=== PATIENT | male | born 1950 | race Caucasian/White ===

== ENCOUNTER 2019-04-01 14:04 | Emergency (ER) | payer OTHER ==
[~2019-04-01] VITALS: Ht 193 cm; Wt 90.7 kg
[~2019-04-01 14:04] MED LIST: Flomax0.4 MG PO; OLAN10 PO; PANT20 PO; PROAIR DIGIHAL90 MCG INH; SERT25 PO
== END 2019-04-01 15:24 | disposition left against medical advice (07) ==
LOC: ER 14:04
DX: L98.9 Disorder of the skin and subcutaneous tissue, unspecified (principal); I10 Essential (primary) hypertension; J44.9 Chronic obstructive pulmonary disease, unspecified; I48.91 Unspecified atrial fibrillation; F17.200 Nicotine dependence, unspecified, uncomplicated; Z88.8 Allergy status to other drugs, medicaments and biological substances; Z88.2 Allergy status to sulfonamides; Z88.1 Allergy status to other antibiotic agents; Z79.899 Other long term (current) drug therapy
CPT/HCPCS: 99283

== ENCOUNTER 2019-04-02 19:18 | Emergency (ER) | payer OTHER ==
[~2019-04-02] VITALS: Ht 193 cm; Wt 95.2 kg
[2019-04-02 20:08] LABS: BASOPHILS ABSOLUTE AUTO 0.06 K/mm3 (0.00-0.23); BASOPHILS PERCENT AUTO 1 % (0-2); EOSINOPHILS ABSOLUTE AUTO 0.19 K/mm3 (0.00-0.68); EOSINOPHILS PERCENT AUTO 3 % (0-6); IMMATURE GRAN ABSOLUTE AUTO 0.02 K/mm3 (0.00-0.10); IMMATURE GRAN PERCENT AUTO 0 % (0-1); LYMPHOCYTES ABSOLUTE AUTO 1.17 K/mm3 (0.84-5.20); LYMPHOCYTES PERCENT AUTO 20 % (21-46); MONOCYTES ABSOLUTE AUTO 0.61 K/mm3 (0.16-1.47); MONOCYTES PERCENT AUTO 10 % (4-13); Mean Corpuscular HGB 27.9 pg (26.0-34.0); Mean Corpuscular HGB Conc 31.3 g/dL (31.5-36.5); Mean Corpuscular Volume 89 fL (80-100); Mean Platelet Volume 9.4 fL (9.1-12.4); NEUTROPHILS ABSOLUTE AUTO 3.96 K/mm3 (1.96-9.15); NEUTROPHILS PERCENT AUTO 66 % (41-73); Platelet Count 233 K/mm3 (150-400); RDW Coefficient Variation 14.8 % (11.7-14.2); RDW Standard Deviation 49.1 fL (35.1-46.3); Red Blood Cell Count 3.58 M/mm3 (4.30-5.90); White Blood Cell Count 6.01 K/mm3 (4.00-11.30)
[2019-04-02 20:22] LABS: Alanine Aminotransfer (ALT/SGP 15 U/L (12-78); Albumin, Blood 3.3 g/dL (3.4-5.0); Alk Phos 101 U/L (50-136); Anion Gap 6 mmol/L (6-16); Aspartate Aminotrans (AST/SGOT 24 U/L (12-37); Bilirubin, Total 0.3 mg/dL (0.1-1.0); Blood Urea Nitrogen 15 mg/dL (8-24); Bun/Creatinine Ratio 14.7 (12.0-20.0); CO2, Blood 26 mmol/L (21-32); Calcium, Blood 7.9 mg/dL (8.5-10.1); Chloride, Blood 101 mmol/L (98-108); Creatinine, Blood 1.02 mg/dL (0.60-1.20); Globulin, Blood 3.2 g/dL (2.2-4.0); Glomerular Filtration Rate >60 (60-); Glucose, Blood 82 mg/dL (70-99); Potassium, Blood 3.4 mmol/L (3.5-5.5); Sodium, Blood 133 mmol/L (136-145); Total Protein, Blood 6.5 g/dL (6.4-8.2); Troponin I 0.015 ng/mL (0.000-0.040)
== END 2019-04-02 21:41 | disposition home or self-care (01) ==
LOC: ER 19:18
PROVIDERS: Emergency Medicine
DX: S20.319A Abrasion of unspecified front wall of thorax, initial encounter (principal); S40.211A Abrasion of right shoulder, initial encounter; L28.0 Lichen simplex chronicus; X58.XXXA Exposure to other specified factors, initial encounter; Z88.8 Allergy status to other drugs, medicaments and biological substances; Z88.2 Allergy status to sulfonamides; Z88.1 Allergy status to other antibiotic agents; Z79.899 Other long term (current) drug therapy; I10 Essential (primary) hypertension; J44.9 Chronic obstructive pulmonary disease, unspecified; I48.91 Unspecified atrial fibrillation; F17.200 Nicotine dependence, unspecified, uncomplicated
CPT/HCPCS: 36415; 80053; 84484; 85025; 93005; 93010; 99284-25

== ENCOUNTER 2019-04-05 17:17 | Emergency (ER) | payer OTHER ==
[~2019-04-05] VITALS: Ht 193 cm; Wt 105.7 kg
[2019-04-05] MEDS ORDERED: Monodox100 MG PO (19:07)
== END 2019-04-05 19:19 | disposition home or self-care (01) ==
LOC: ER 17:17
DX: L02.512 Cutaneous abscess of left hand (principal); L02.511 Cutaneous abscess of right hand; L03.114 Cellulitis of left upper limb; L03.113 Cellulitis of right upper limb; I10 Essential (primary) hypertension; I48.91 Unspecified atrial fibrillation; J44.9 Chronic obstructive pulmonary disease, unspecified; Z87.01 Personal history of pneumonia (recurrent); Z88.2 Allergy status to sulfonamides; Z88.8 Allergy status to other drugs, medicaments and biological substances; F17.200 Nicotine dependence, unspecified, uncomplicated
CPT/HCPCS: 99283

== ENCOUNTER 2019-04-06 18:15 | Emergency (ER) | payer OTHER ==
[~2019-04-06] VITALS: Ht 182.9 cm; Wt 90.7 kg
[~2019-04-06 18:15] MED LIST changes: +Monodox100 MG PO
[2019-04-06 20:11] LABS: BASOPHILS ABSOLUTE AUTO 0.09 K/mm3 (0.00-0.23); BASOPHILS PERCENT AUTO 1 % (0-2); EOSINOPHILS ABSOLUTE AUTO 0.42 K/mm3 (0.00-0.68); EOSINOPHILS PERCENT AUTO 6 % (0-6); Hematocrit 29.1 % (37.0-53.0); Hemoglobin 9.2 g/dL (13.5-17.5); IMMATURE GRAN ABSOLUTE AUTO 0.02 K/mm3 (0.00-0.10); IMMATURE GRAN PERCENT AUTO 0 % (0-1); LYMPHOCYTES ABSOLUTE AUTO 1.53 K/mm3 (0.84-5.20); LYMPHOCYTES PERCENT AUTO 22 % (21-46); MONOCYTES ABSOLUTE AUTO 0.77 K/mm3 (0.16-1.47); MONOCYTES PERCENT AUTO 11 % (4-13); Mean Corpuscular HGB 28.2 pg (26.0-34.0); Mean Corpuscular HGB Conc 31.6 g/dL (31.5-36.5); Mean Corpuscular Volume 89 fL (80-100); Mean Platelet Volume 9.4 fL (9.1-12.4); NEUTROPHILS ABSOLUTE AUTO 4.23 K/mm3 (1.96-9.15); NEUTROPHILS PERCENT AUTO 60 % (41-73); Platelet Count 228 K/mm3 (150-400); RDW Coefficient Variation 15.4 % (11.7-14.2); RDW Standard Deviation 50.4 fL (35.1-46.3); Red Blood Cell Count 3.26 M/mm3 (4.30-5.90); White Blood Cell Count 7.06 K/mm3 (4.00-11.30)
[2019-04-06 20:30] LABS: Alanine Aminotransfer (ALT/SGP 29 U/L (12-78); Albumin, Blood 2.9 g/dL (3.4-5.0); Alk Phos 88 U/L (50-136); Anion Gap 3 mmol/L (6-16); Aspartate Aminotrans (AST/SGOT 29 U/L (12-37); Bilirubin, Total 0.2 mg/dL (0.1-1.0); Blood Urea Nitrogen 22 mg/dL (8-24); CO2, Blood 28 mmol/L (21-32); Calcium, Blood 7.9 mg/dL (8.5-10.1); Chloride, Blood 111 mmol/L (98-108); Creatinine, Blood 1.05 mg/dL (0.60-1.20); Ethanol (Alcohol), Blood, Med <3 mg/dL; Globulin, Blood 2.9 g/dL (2.2-4.0); Glomerular Filtration Rate >60 (60-); Glucose, Blood 92 mg/dL (70-99); Potassium, Blood 4.2 mmol/L (3.5-5.5); Sodium, Blood 142 mmol/L (136-145); Total Protein, Blood 5.8 g/dL (6.4-8.2)
== END 2019-04-06 22:33 | disposition home or self-care (01) ==
LOC: ER 18:15
PROVIDERS: Emergency Medicine
DX: L80 Vitiligo (principal); F17.210 Nicotine dependence, cigarettes, uncomplicated
CPT/HCPCS: 36415; 71046; 80053; 83605; 83690; 83735; 85025; 93005; 93010; 94640; 99284-25; G0480; J7120

== ENCOUNTER 2019-05-24 15:07 | Emergency (ER) | payer OTHER, MEDICARE ==
[~2019-05-24] VITALS: Ht 193 cm; Wt 99.8 kg
[2019-05-24] MEDS ORDERED: VENL25 PO (15:29)
[2019-05-24] MEDS ORDERED: OLAN10 PO (15:30)
[2019-05-24] MEDS ORDERED: THERA-D2000 UNIT PO (15:31)
[2019-05-24] MEDS ORDERED: GABA300 PO (15:31)
[2019-05-24 15:32] LABS: BASOPHILS ABSOLUTE AUTO 0.07 K/mm3 (0.00-0.23); BASOPHILS PERCENT AUTO 1 % (0-2); EOSINOPHILS ABSOLUTE AUTO 0.13 K/mm3 (0.00-0.68); EOSINOPHILS PERCENT AUTO 2 % (0-6); Hematocrit 38.5 % (37.0-53.0); IMMATURE GRAN ABSOLUTE AUTO 0.02 K/mm3 (0.00-0.10); IMMATURE GRAN PERCENT AUTO 0 % (0-1); LYMPHOCYTES ABSOLUTE AUTO 1.24 K/mm3 (0.84-5.20); LYMPHOCYTES PERCENT AUTO 15 % (21-46); MONOCYTES PERCENT AUTO 9 % (4-13); Mean Corpuscular HGB 26.4 pg (26.0-34.0); Mean Corpuscular HGB Conc 31.2 g/dL (31.5-36.5); Mean Corpuscular Volume 85 fL (80-100); Mean Platelet Volume 9.5 fL (9.1-12.4); NEUTROPHILS PERCENT AUTO 74 % (41-73); Platelet Count 246 K/mm3 (150-400); RDW Coefficient Variation 15.1 % (11.7-14.2); RDW Standard Deviation 46.4 fL (35.1-46.3); Red Blood Cell Count 4.54 M/mm3 (4.30-5.90); White Blood Cell Count 8.16 K/mm3 (4.00-11.30)
[2019-05-24 15:55] LABS: Alanine Aminotransfer (ALT/SGP 17 U/L (12-78); Albumin, Blood 3.9 g/dL (3.4-5.0); Albumin/Globulin Ratio 1.1 (0.8-1.8); Alk Phos 115 U/L (50-136); Anion Gap 6 mmol/L (6-16); Aspartate Aminotrans (AST/SGOT 19 U/L (12-37); Bilirubin, Total 0.3 mg/dL (0.1-1.0); Blood Urea Nitrogen 21 mg/dL (8-24); Bun/Creatinine Ratio 22.4 (12.0-20.0); CO2, Blood 26 mmol/L (21-32); Calcium, Blood 8.7 mg/dL (8.5-10.1); Chloride, Blood 108 mmol/L (98-108); Creatinine, Blood 0.94 mg/dL (0.60-1.20); Globulin, Blood 3.6 g/dL (2.2-4.0); Glomerular Filtration Rate >60 (60-); Glucose, Blood 118 mg/dL (70-99); Potassium, Blood 3.6 mmol/L (3.5-5.5); Sodium, Blood 140 mmol/L (136-145); Total Protein, Blood 7.5 g/dL (6.4-8.2); Troponin I <0.015 ng/mL (0.000-0.040)
[2019-05-24 17:19] LABS: International Normalized Ratio 1.01; Prothrombin Time Results 10.8 Sec (9.7-11.5)
== END 2019-05-24 19:11 | disposition home or self-care (01) ==
LOC: ER 15:07
PROVIDERS: Emergency Medicine
DX: R07.9 Chest pain, unspecified (principal); R00.2 Palpitations; I10 Essential (primary) hypertension; I48.91 Unspecified atrial fibrillation; Z79.899 Other long term (current) drug therapy
CPT/HCPCS: 71046; 80053; 84484; 85025; 85610; 93005; 93010; 99285-25

== ENCOUNTER 2019-05-30 09:11 | Emergency (ER) | payer OTHER, MEDICARE ==
[~2019-05-30] VITALS: Ht 193 cm; Wt 98.9 kg
[~2019-05-30 09:11] MED LIST changes: +GABA300 PO; +THERA-D2000 UNIT PO; +VENL25 PO
== END 2019-05-30 09:54 | disposition home or self-care (01) ==
LOC: ER 09:11
DX: Z04.3 Encounter for examination and observation following other accident (principal); J44.9 Chronic obstructive pulmonary disease, unspecified; F43.10 Post-traumatic stress disorder, unspecified; F31.9 Bipolar disorder, unspecified; K21.9 Gastro-esophageal reflux disease without esophagitis; I48.91 Unspecified atrial fibrillation; F17.210 Nicotine dependence, cigarettes, uncomplicated; Z88.8 Allergy status to other drugs, medicaments and biological substances; Z88.2 Allergy status to sulfonamides; Z88.1 Allergy status to other antibiotic agents; Z79.899 Other long term (current) drug therapy; W19.XXXA Unspecified fall, initial encounter
CPT/HCPCS: 99283

== ENCOUNTER 2019-05-31 02:04 | Emergency (ER) | payer OTHER, MEDICARE ==
[~2019-05-31] VITALS: Ht 193 cm; Wt 103.0 kg
[2019-05-31 02:36] LABS: BASOPHILS ABSOLUTE AUTO 0.05 K/mm3 (0.00-0.23); BASOPHILS PERCENT AUTO 1 % (0-2); EOSINOPHILS ABSOLUTE AUTO 0.01 K/mm3 (0.00-0.68); EOSINOPHILS PERCENT AUTO 0 % (0-6); Hematocrit 31.9 % (37.0-53.0); IMMATURE GRAN ABSOLUTE AUTO 0.02 K/mm3 (0.00-0.10); IMMATURE GRAN PERCENT AUTO 0 % (0-1); LYMPHOCYTES ABSOLUTE AUTO 0.63 K/mm3 (0.84-5.20); LYMPHOCYTES PERCENT AUTO 7 % (21-46); MONOCYTES ABSOLUTE AUTO 0.76 K/mm3 (0.16-1.47); MONOCYTES PERCENT AUTO 9 % (4-13); Mean Corpuscular HGB 26.9 pg (26.0-34.0); Mean Corpuscular HGB Conc 31.3 g/dL (31.5-36.5); Mean Corpuscular Volume 86 fL (80-100); Mean Platelet Volume 9.6 fL (9.1-12.4); NEUTROPHILS ABSOLUTE AUTO 7.28 K/mm3 (1.96-9.15); NEUTROPHILS PERCENT AUTO 83 % (41-73); Platelet Count 331 K/mm3 (150-400); RDW Coefficient Variation 16.5 % (11.7-14.2); RDW Standard Deviation 51.1 fL (35.1-46.3); Red Blood Cell Count 3.72 M/mm3 (4.30-5.90); White Blood Cell Count 8.75 K/mm3 (4.00-11.30)
[2019-05-31 02:55] LABS: Alanine Aminotransfer (ALT/SGP 45 U/L (12-78); Albumin, Blood 3.7 g/dL (3.4-5.0); Alk Phos 111 U/L (50-136); Anion Gap 16 mmol/L (6-16); Aspartate Aminotrans (AST/SGOT 135 U/L (12-37); Bilirubin, Total 0.8 mg/dL (0.1-1.0); Blood Urea Nitrogen 29 mg/dL (8-24); Bun/Creatinine Ratio 29.4 (12.0-20.0); CO2, Blood 20 mmol/L (21-32); Calcium, Blood 8.8 mg/dL (8.5-10.1); Chloride, Blood 103 mmol/L (98-108); Creatinine, Blood 0.99 mg/dL (0.60-1.20); Globulin, Blood 3.6 g/dL (2.2-4.0); Glomerular Filtration Rate >60 (60-); Glucose, Blood 69 mg/dL (70-99); Potassium, Blood 4.5 mmol/L (3.5-5.5); Sodium, Blood 139 mmol/L (136-145); Total Protein, Blood 7.3 g/dL (6.4-8.2)
[2019-05-31 05:02] LABS: Source, Urine Voided
[2019-05-31 05:07] LABS: Bilirubin, Urine Neg (Neg); Blood, Urine 1+ (Neg); Glucose Qualitative, Urine Neg (Neg); Ketones, Urine 4+ (Neg); Leukocyte Esterase, Urine Neg (Neg); Nitrite, Urine Neg (Neg); Protein, Urine Neg (Neg); Specific Gravity, Urine 1.025 (1.003-1.022); Urobilinogen, Urine NORM (Normal)
[2019-05-31 05:13] LABS: Appearance, Urine Clear (Clear); Color, Urine Yellow (P-Yellow)
[2019-05-31 05:15] LABS: Bacteria Rare /hpf; Red Blood Cells, Urine Not Seen /hpf (0-2); Squamous Epithelial Cells Rare /hpf (Few); White Blood Cells, Urine Not Seen /hpf (0-5)
== END 2019-05-31 06:21 | disposition home or self-care (01) ==
LOC: ER 02:04
PROVIDERS: Emergency Medicine
DX: J44.9 Chronic obstructive pulmonary disease, unspecified (principal); I48.91 Unspecified atrial fibrillation; I10 Essential (primary) hypertension; K21.9 Gastro-esophageal reflux disease without esophagitis; F31.9 Bipolar disorder, unspecified; F17.210 Nicotine dependence, cigarettes, uncomplicated; Z88.8 Allergy status to other drugs, medicaments and biological substances; Z88.2 Allergy status to sulfonamides; Z88.1 Allergy status to other antibiotic agents; Z79.899 Other long term (current) drug therapy
CPT/HCPCS: 71045; 80053; 81001; 83690; 85025; 93005; 93010; 96374; 96375; 99284-25

== ENCOUNTER 2019-05-31 16:07 | Emergency (ER) | payer OTHER, MEDICARE ==
[~2019-05-31] VITALS: Ht 193 cm; Wt 104.3 kg
== END 2019-05-31 16:38 | disposition home or self-care (01) ==
LOC: ER 16:07
DX: F31.9 Bipolar disorder, unspecified (principal); F41.9 Anxiety disorder, unspecified; F60.3 Borderline personality disorder; Z76.5 Malingerer [conscious simulation]; I10 Essential (primary) hypertension; J44.9 Chronic obstructive pulmonary disease, unspecified; I48.91 Unspecified atrial fibrillation; F43.10 Post-traumatic stress disorder, unspecified; K21.9 Gastro-esophageal reflux disease without esophagitis; Z88.2 Allergy status to sulfonamides; F17.210 Nicotine dependence, cigarettes, uncomplicated; Z88.8 Allergy status to other drugs, medicaments and biological substances; Z79.899 Other long term (current) drug therapy
CPT/HCPCS: 99283

== ENCOUNTER 2019-06-04 19:19 | Emergency (ER) | payer OTHER, MEDICARE ==
[~2019-06-04] VITALS: Ht 193 cm; Wt 99.8 kg
[2019-06-04 20:24] LABS: BASOPHILS ABSOLUTE AUTO 0.04 K/mm3 (0.00-0.23); BASOPHILS PERCENT AUTO 1 % (0-2); EOSINOPHILS ABSOLUTE AUTO 0.13 K/mm3 (0.00-0.68); EOSINOPHILS PERCENT AUTO 2 % (0-6); Hematocrit 31.4 % (37.0-53.0); Hemoglobin 9.8 g/dL (13.5-17.5); IMMATURE GRAN ABSOLUTE AUTO 0.01 K/mm3 (0.00-0.10); IMMATURE GRAN PERCENT AUTO 0 % (0-1); LYMPHOCYTES ABSOLUTE AUTO 0.86 K/mm3 (0.84-5.20); LYMPHOCYTES PERCENT AUTO 12 % (21-46); MONOCYTES ABSOLUTE AUTO 0.73 K/mm3 (0.16-1.47); MONOCYTES PERCENT AUTO 10 % (4-13); Mean Corpuscular HGB Conc 31.2 g/dL (31.5-36.5); Mean Corpuscular Volume 87 fL (80-100); Mean Platelet Volume 9.1 fL (9.1-12.4); NEUTROPHILS ABSOLUTE AUTO 5.65 K/mm3 (1.96-9.15); NEUTROPHILS PERCENT AUTO 76 % (41-73); Platelet Count 262 K/mm3 (150-400); RDW Coefficient Variation 16.5 % (11.7-14.2); RDW Standard Deviation 52.6 fL (35.1-46.3); Red Blood Cell Count 3.63 M/mm3 (4.30-5.90); White Blood Cell Count 7.42 K/mm3 (4.00-11.30)
[2019-06-04 20:43] LABS: Alanine Aminotransfer (ALT/SGP 25 U/L (12-78); Albumin, Blood 3.1 g/dL (3.4-5.0); Alk Phos 79 U/L (50-136); Anion Gap 4 mmol/L (6-16); Aspartate Aminotrans (AST/SGOT 21 U/L (12-37); Bilirubin, Total 0.3 mg/dL (0.1-1.0); Blood Urea Nitrogen 17 mg/dL (8-24); Bun/Creatinine Ratio 22.8 (12.0-20.0); CO2, Blood 28 mmol/L (21-32); Calcium, Blood 8.5 mg/dL (8.5-10.1); Chloride, Blood 105 mmol/L (98-108); Creatinine, Blood 0.75 mg/dL (0.60-1.20); Globulin, Blood 3.2 g/dL (2.2-4.0); Glomerular Filtration Rate >60 (60-); Glucose, Blood 114 mg/dL (70-99); Potassium, Blood 4.1 mmol/L (3.5-5.5); Sodium, Blood 137 mmol/L (136-145); Total Protein, Blood 6.3 g/dL (6.4-8.2)
[2019-06-04] MEDS ORDERED: Lasix20 MG PO ×2 (21:02→22:00)
[2019-06-06] MEDS ORDERED: Lasix20 MG PO (23:01)
== END 2019-06-04 21:55 | disposition home or self-care (01) ==
LOC: ER 19:19
PROVIDERS: Emergency Medicine
DX: R60.0 Localized edema (principal); J44.9 Chronic obstructive pulmonary disease, unspecified; F31.9 Bipolar disorder, unspecified; K21.9 Gastro-esophageal reflux disease without esophagitis; F43.10 Post-traumatic stress disorder, unspecified; F17.200 Nicotine dependence, unspecified, uncomplicated; Z88.2 Allergy status to sulfonamides; Z88.8 Allergy status to other drugs, medicaments and biological substances; Z79.899 Other long term (current) drug therapy
CPT/HCPCS: 36415; 73590; 80053; 85025; 93970; 99284-25

== ENCOUNTER 2019-06-08 19:14 | Emergency (ER) | payer OTHER, MEDICARE ==
[~2019-06-08] VITALS: Ht 193 cm; Wt 99.8 kg
[~2019-06-08 19:14] MED LIST changes: +Lasix20 MG PO
== END 2019-06-08 20:41 | disposition home or self-care (01) ==
LOC: ER 19:14
DX: R60.0 Localized edema (principal); J44.9 Chronic obstructive pulmonary disease, unspecified; F31.9 Bipolar disorder, unspecified; K21.9 Gastro-esophageal reflux disease without esophagitis; F43.10 Post-traumatic stress disorder, unspecified; Z88.2 Allergy status to sulfonamides; Z88.8 Allergy status to other drugs, medicaments and biological substances; Z79.899 Other long term (current) drug therapy; Z86.14 Personal history of Methicillin resistant Staphylococcus aureus infection; F17.210 Nicotine dependence, cigarettes, uncomplicated
CPT/HCPCS: 96374; 99283-25; J1940

== ENCOUNTER 2019-06-09 04:43 | Emergency (ER) | payer OTHER, MEDICARE ==
[~2019-06-09] VITALS: Ht 193 cm; Wt 99.8 kg
== END 2019-06-09 05:37 | disposition home or self-care (01) ==
LOC: ER 04:43
DX: Z00.00 Encounter for general adult medical examination without abnormal findings (principal); F43.10 Post-traumatic stress disorder, unspecified; J44.9 Chronic obstructive pulmonary disease, unspecified; F31.9 Bipolar disorder, unspecified; K21.9 Gastro-esophageal reflux disease without esophagitis; F17.210 Nicotine dependence, cigarettes, uncomplicated; Z88.8 Allergy status to other drugs, medicaments and biological substances; Z88.2 Allergy status to sulfonamides; Z88.1 Allergy status to other antibiotic agents; Z79.899 Other long term (current) drug therapy
CPT/HCPCS: 99282

== ENCOUNTER 2019-06-15 19:35 | Emergency (ER) | payer OTHER, MEDICARE ==
[~2019-06-15] VITALS: Ht 193 cm; Wt 108.9 kg
== END 2019-06-15 21:27 | disposition home or self-care (01) ==
LOC: ER 19:35
DX: M71.21 Synovial cyst of popliteal space [Baker], right knee (principal); J44.9 Chronic obstructive pulmonary disease, unspecified; F31.9 Bipolar disorder, unspecified; K21.9 Gastro-esophageal reflux disease without esophagitis; F17.210 Nicotine dependence, cigarettes, uncomplicated; Z88.8 Allergy status to other drugs, medicaments and biological substances; Z88.2 Allergy status to sulfonamides; Z88.1 Allergy status to other antibiotic agents; Z79.899 Other long term (current) drug therapy
CPT/HCPCS: 93970; 99284-25

== ENCOUNTER 2019-07-04 16:28 | Emergency (ER) | payer OTHER, MEDICARE ==
[~2019-07-04] VITALS: Ht 193 cm; Wt 99.8 kg
[2019-07-04 17:05] LABS: BASOPHILS ABSOLUTE AUTO 0.07 K/mm3 (0.00-0.23); BASOPHILS PERCENT AUTO 1 % (0-2); EOSINOPHILS ABSOLUTE AUTO 0.14 K/mm3 (0.00-0.68); EOSINOPHILS PERCENT AUTO 2 % (0-6); Hematocrit 36.2 % (37.0-53.0); Hemoglobin 11.3 g/dL (13.5-17.5); IMMATURE GRAN ABSOLUTE AUTO 0.02 K/mm3 (0.00-0.10); IMMATURE GRAN PERCENT AUTO 0 % (0-1); LYMPHOCYTES ABSOLUTE AUTO 1.05 K/mm3 (0.84-5.20); LYMPHOCYTES PERCENT AUTO 16 % (21-46); MONOCYTES ABSOLUTE AUTO 0.61 K/mm3 (0.16-1.47); MONOCYTES PERCENT AUTO 10 % (4-13); Mean Corpuscular HGB 25.5 pg (26.0-34.0); Mean Corpuscular HGB Conc 31.2 g/dL (31.5-36.5); Mean Corpuscular Volume 82 fL (80-100); Mean Platelet Volume 9.1 fL (9.1-12.4); NEUTROPHILS ABSOLUTE AUTO 4.53 K/mm3 (1.96-9.15); NEUTROPHILS PERCENT AUTO 71 % (41-73); Platelet Count 331 K/mm3 (150-400); RDW Coefficient Variation 15.9 % (11.7-14.2); RDW Standard Deviation 47.8 fL (35.1-46.3); Red Blood Cell Count 4.44 M/mm3 (4.30-5.90); White Blood Cell Count 6.42 K/mm3 (4.00-11.30)
[2019-07-04 17:23] LABS: Anion Gap 6 mmol/L (6-16); Blood Urea Nitrogen 13 mg/dL (8-24); Bun/Creatinine Ratio 15.1 (12.0-20.0); CO2, Blood 27 mmol/L (21-32); Chloride, Blood 102 mmol/L (98-108); Creatinine, Blood 0.86 mg/dL (0.60-1.20); Ethanol (Alcohol), Blood, Med 14 mg/dL; Glomerular Filtration Rate >60 (60-); Glucose, Blood 81 mg/dL (70-99); Potassium, Blood 3.7 mmol/L (3.5-5.5); Sodium, Blood 135 mmol/L (136-145)
== END 2019-07-04 17:41 | disposition home or self-care (01) ==
LOC: ER 16:28
PROVIDERS: Emergency Medicine
DX: R60.0 Localized edema (principal); J44.9 Chronic obstructive pulmonary disease, unspecified; F17.200 Nicotine dependence, unspecified, uncomplicated; Z91.14 Patient's other noncompliance with medication regimen
CPT/HCPCS: 80048; 85025; 99283; G0480

== ENCOUNTER 2019-07-05 09:52 | Emergency (ER) | payer OTHER, MEDICARE ==
[~2019-07-05] VITALS: Ht 193 cm; Wt 104.3 kg
== END 2019-07-05 11:49 | disposition home or self-care (01) ==
LOC: ER 09:52
DX: R52 Pain, unspecified (principal); Z76.0 Encounter for issue of repeat prescription; I10 Essential (primary) hypertension; J44.9 Chronic obstructive pulmonary disease, unspecified; F31.9 Bipolar disorder, unspecified; K21.9 Gastro-esophageal reflux disease without esophagitis; F17.210 Nicotine dependence, cigarettes, uncomplicated; Z59.0 Homelessness; Z88.8 Allergy status to other drugs, medicaments and biological substances; Z88.2 Allergy status to sulfonamides; Z88.1 Allergy status to other antibiotic agents
CPT/HCPCS: 99283

== ENCOUNTER 2019-07-11 01:26 | Emergency (ER) | payer OTHER, MEDICARE ==
[~2019-07-11] VITALS: Ht 193 cm; Wt 95.2 kg
== END 2019-07-11 01:46 | disposition home or self-care (01) ==
LOC: ER 01:26
DX: F32.9 Major depressive disorder, single episode, unspecified (principal); J44.9 Chronic obstructive pulmonary disease, unspecified; K21.9 Gastro-esophageal reflux disease without esophagitis; F17.210 Nicotine dependence, cigarettes, uncomplicated; Z88.8 Allergy status to other drugs, medicaments and biological substances; Z88.2 Allergy status to sulfonamides; Z88.1 Allergy status to other antibiotic agents; Z79.899 Other long term (current) drug therapy
CPT/HCPCS: 99284

== ENCOUNTER 2019-07-27 16:12 | Emergency (ER) | payer OTHER, MEDICARE ==
[~2019-07-27] VITALS: Ht 193 cm; Wt 99.8 kg
== END 2019-07-27 17:20 | disposition home or self-care (01) ==
LOC: ER 16:12
DX: Z59.0 Homelessness (principal); F17.210 Nicotine dependence, cigarettes, uncomplicated; Z88.2 Allergy status to sulfonamides; Z88.8 Allergy status to other drugs, medicaments and biological substances
CPT/HCPCS: 99283

== ENCOUNTER 2019-07-27 17:40 | Observation (INO) | payer OTHER, MEDICARE ==
[~2019-07-27] VITALS: Ht 182.9 cm; Wt 87.1 kg
[2019-07-27 18:16] LABS: BASOPHILS ABSOLUTE AUTO 0.07 K/mm3 (0.00-0.23); BASOPHILS PERCENT AUTO 1 % (0-2); EOSINOPHILS ABSOLUTE AUTO 0.09 K/mm3 (0.00-0.68); EOSINOPHILS PERCENT AUTO 1 % (0-6); Hematocrit 35.5 % (37.0-53.0); Hemoglobin 11.3 g/dL (13.5-17.5); IMMATURE GRAN ABSOLUTE AUTO 0.02 K/mm3 (0.00-0.10); IMMATURE GRAN PERCENT AUTO 0 % (0-1); LYMPHOCYTES PERCENT AUTO 11 % (21-46); MONOCYTES ABSOLUTE AUTO 0.63 K/mm3 (0.16-1.47); MONOCYTES PERCENT AUTO 7 % (4-13); Mean Corpuscular HGB 25.4 pg (26.0-34.0); Mean Corpuscular HGB Conc 31.8 g/dL (31.5-36.5); Mean Corpuscular Volume 80 fL (80-100); Mean Platelet Volume 9.5 fL (9.1-12.4); NEUTROPHILS ABSOLUTE AUTO 6.76 K/mm3 (1.96-9.15); NEUTROPHILS PERCENT AUTO 80 % (41-73); Platelet Count 331 K/mm3 (150-400); RDW Coefficient Variation 17.2 % (11.7-14.2); RDW Standard Deviation 49.8 fL (35.1-46.3); Red Blood Cell Count 4.45 M/mm3 (4.30-5.90); White Blood Cell Count 8.47 K/mm3 (4.00-11.30)
[2019-07-27 18:36] LABS: Alanine Aminotransfer (ALT/SGP 25 U/L (12-78); Albumin, Blood 3.7 g/dL (3.4-5.0); Alk Phos 91 U/L (50-136); Anion Gap 11 mmol/L (6-16); Aspartate Aminotrans (AST/SGOT 50 U/L (12-37); Bilirubin, Total 0.5 mg/dL (0.1-1.0); Blood Urea Nitrogen 17 mg/dL (8-24); Bun/Creatinine Ratio 17.9 (12.0-20.0); CO2, Blood 23 mmol/L (21-32); Calcium, Blood 9.1 mg/dL (8.5-10.1); Chloride, Blood 107 mmol/L (98-108); Creatinine, Blood 0.95 mg/dL (0.60-1.20); Ethanol (Alcohol), Blood, Med 5 mg/dL; Globulin, Blood 3.6 g/dL (2.2-4.0); Glomerular Filtration Rate >60 (60-); Glucose, Blood 102 mg/dL (70-99); Potassium, Blood 3.3 mmol/L (3.5-5.5); Prolactin 21.9 ng/mL (2.5-17.4); Sodium, Blood 141 mmol/L (136-145); Total Protein, Blood 7.3 g/dL (6.4-8.2)
[2019-07-28 04:40] LABS: Anion Gap 8 mmol/L (6-16); Blood Urea Nitrogen 16 mg/dL (8-24); Bun/Creatinine Ratio 20.8 (12.0-20.0); CO2, Blood 24 mmol/L (21-32); Calcium, Blood 8.1 mg/dL (8.5-10.1); Chloride, Blood 109 mmol/L (98-108); Creatinine, Blood 0.77 mg/dL (0.60-1.20); Glomerular Filtration Rate >60 (60-); Glucose, Blood 85 mg/dL (70-99); Magnesium, Blood 2.5 mg/dL (1.6-2.4); Potassium, Blood 3.6 mmol/L (3.5-5.5); Sodium, Blood 141 mmol/L (136-145)
--- NOTE | 2019-07-28 07:35 | NUR ---
REC'D REPORT FROM ELLA VIERA AND AM NOW ASSUMING CARE OF THIS PT.
--- NOTE | 2019-07-28 07:39 | NUR ---
ADMIT NOTE/SHIFT SUMMARY PATIENT ADMITED THE BEGINNING OF THE SHIFT AND WAS VERY DROWSY UPON ADMIT. PATIENT WOULD AWAKEN TO VERBAL STIMULI AND WOULD SHAKE HEAD YES/NO BUT WOULD THEN QUICKLY FALL BACK ASLEEP. PATIENT APPEARED TO SLEEP WELL THROUGHOUT MOST OF THE NIGHT. AT APPOX 0400 PATIENT STARTED WAKING UP MORE AND TALKING AND INTERACTING WITH STAFF. PATIENT HAS APPEARED TO BE AWAKE FOR THE LAST 30-45 MINUTES THIS MORNING. VITAL SIGNS CHARTED. CIWA'S CHARTED. REPORT GIVEN TO ONCOMING RN.
--- NOTE | 2019-07-28 11:40 | NUR ---
DR VILLARREAL IN TO ASSESS PT. SEE NEW ORDERS. PENDING MRI OF LT SHOULDER R/T ACUTE PAIN FROM FALL.
--- NOTE | 2019-07-28 12:00 | NUR ---
MRI SCREENING FORM FILLED OUT WITH PT AND FAXED TO RADIOLOGY.
--- NOTE | 2019-07-28 14:10 | NUR ---
PT RETURNED FROM MRI. PT TREATED WITH TORADOL FOR PAIN. PO POTASSIUM FOR BORDERLINE LOW POTASSIUM, AND ZYPREXA PER ORDERS ONCE HE RETURNED TO RM. PT DECLINED WANTING TO TAKE ZOLOFT. DISCUSSED BLOOD AND RELEASE OF INFORMATION PAPERWORK WITH PT AND OBTAINED SIGNATURE.
--- NOTE | 2019-07-28 17:30 | NUR ---
PT UPDATE: UPON THIS RN ENTERING ROOM. PT FOUND SLEEPING BUT AWOKE EASILY TO VERBALL STIMULI. DENIES ANY PAIN IN RT SHOULDER AFTER REC'ING TORADOL IVP.
--- NOTE | 2019-07-28 17:44 | NUR ---
SHIFT SUMMARY: PT IS SLIGHTLY DROWSY AFTER IV ATIVAN BUT AWAKENS EASILY. PT C/O OF CONSTANT, THROBBING SHOULDER PAIN T/O SHIFT, HOWEVER, REPORTS HE IS PAIN FREE AFTER ONE DOSE OF TORADOL. PT HAS 3 MORE SCHEDULED DOSES. PT REMAINS ALERT AND ORIENTED TO SELF/PLACE/TIME/FOLLOWS DIRECTION. AT TIMES PT IS IMPULSIVE BUT REDIRECTABLE. PT ABLE TO AMBULATE TO RESTROOM WITH SLIGHTLY UNSTEADY GAIT WITH 1 PERSON ASSIST. PT REFUSED TO USE HIS OWN FWW WHEN UP. MRI DONE OF THE RT SHOULDER R/T PAIN FROM RECENT FALL. LUNGS ARE CLEAR, BUT DIMINISHED IN THE BILATERAL BASES. SP02 >90% ON RA T/O SHIFT. HR IRREGULAR, ATRIAL FIB-LOW 100'S WITH REST, BUT WILL INCREASE TO 130-150'S W/EXERTION. IV IS PATENT, SL'D AT THIS TIME. ABD SOFT/NON-TENDER WITH ACTIVE BT'S X4 QAUDS. PT HAS HAD A GOOD APPETITE, AND OFTEN ASKS FOR SNACKS IN BTWN MEALS. VOIDING CLEAR, DARK YELLOW URINE PER URINAL. SUTURES IN PLACE FOR LACERATION TO RT EYEBROW R/T TO RECENT FALL. -FULL CODE STATUS
--- NOTE | 2019-07-28 23:21 | NUR ---
REFUSING MIDNIGHT VITAL SIGNS PATIENT AWAKE AND RESTING IN BED. PATIENT HAS BEEN SLEEPY THROUGHOUT THE SHIFT SO FAR BUT WOKE UP APPROX 30 MINUTES AGO AND HAS BEEN REQUESTING LOTS OF SNACKS AND COFFEE. PATIENT REFUSING ALL MEDS TONIGHT. PATIENT ALSO REFUSING TO WEAR THE SCD'S AND IS REFUSING TO HAVE VITAL SIGNS CHECKED AT THIS TIME. PATIENT CURRENTLY RESTING IN BED WATCHING TV, CALL LIGHT WITHIN REACH. WILL CONTINUE TO MONITOR.
--- NOTE | 2019-07-29 00:24 | NUR ---
REFUSING TELE PATIENT DID EVENTUALLY ALLOW VITAL SIGNS TO BE TAKEN. HOWEVER, PATIENT RIPPED OFF HIS TELE LEADS AND THREW THEM AND THE TELE BOX ON THE FLOOR. PATIENT CURRENTLY REFUSING TO HAVE THEM PLACED AGAIN. PATIENT STATING. "NO, I'M TIRED OF IT ON MY CHEST."
--- NOTE | 2019-07-29 00:48 | NUR ---
UPDATE DR PATEL UPDATED THAT PATIENT IS REFUSING MOST CARE AND THE TELE AT THIS TIME. TELE DISCONTINUED. DR PATEL AWARE THAT PATIENT HAS BEEN AFIB WITH A HEART RATE THAT OCCATIONALLY JUMPED INTO THE 150'S WITH ACTIVITY DURING THE DAY PER DAY SHIFT REPORT. PATIENT HAS BEEN IN THE 70'S-90'S TONIGHT.
--- NOTE | 2019-07-29 03:43 | NUR ---
AM LAB DRAW PATIENT REFUSED TO HAVE AM LABS DRAWN.
--- NOTE | 2019-07-29 05:08 | NUR ---
UPDATE DR PATEL NOTIFIED THAT PATIENT IS REFUSING LABS THIS AM.
--- NOTE | 2019-07-29 06:25 | NUR ---
SHIFT SUMMARY PATIENT APPEARED TO SLEEP WELL FOR SEVERAL HOURS AT THE BEGINNING OF THE SHIFT AND THEN NAPPED ON AND OFF THROUGHOUT THE REST OF THE NIGHT. PATIENT SLIGHTLY IRRITABLE TONIGHT AND REFUSED MOST CARE FROM STAFF BUT DID REQUEST COFEE AND SNACKS FREQUENTLY. PATIENT CURRENTLY RESTING IN BED, CALL LIGHT WITHIN REACH. WILL CONTINUE TO MONITOR PATIENT AND REPORT TO ONCOMING RN.
[2019-07-29 09:25] LABS: BASOPHILS ABSOLUTE AUTO 0.06 K/mm3 (0.00-0.23); BASOPHILS PERCENT AUTO 1 % (0-2); EOSINOPHILS ABSOLUTE AUTO 0.28 K/mm3 (0.00-0.68); EOSINOPHILS PERCENT AUTO 4 % (0-6); Hematocrit 34.9 % (37.0-53.0); IMMATURE GRAN ABSOLUTE AUTO 0.02 K/mm3 (0.00-0.10); IMMATURE GRAN PERCENT AUTO 0 % (0-1); LYMPHOCYTES ABSOLUTE AUTO 1.06 K/mm3 (0.84-5.20); LYMPHOCYTES PERCENT AUTO 14 % (21-46); MONOCYTES ABSOLUTE AUTO 0.56 K/mm3 (0.16-1.47); MONOCYTES PERCENT AUTO 7 % (4-13); Mean Corpuscular HGB 25.5 pg (26.0-34.0); Mean Corpuscular HGB Conc 31.5 g/dL (31.5-36.5); Mean Corpuscular Volume 81 fL (80-100); Mean Platelet Volume 9.5 fL (9.1-12.4); NEUTROPHILS ABSOLUTE AUTO 5.55 K/mm3 (1.96-9.15); NEUTROPHILS PERCENT AUTO 74 % (41-73); Platelet Count 272 K/mm3 (150-400); RDW Coefficient Variation 17.3 % (11.7-14.2); RDW Standard Deviation 50.7 fL (35.1-46.3); Red Blood Cell Count 4.32 M/mm3 (4.30-5.90); White Blood Cell Count 7.53 K/mm3 (4.00-11.30)
[2019-07-29 09:42] LABS: Alanine Aminotransfer (ALT/SGP 17 U/L (12-78); Albumin, Blood 2.9 g/dL (3.4-5.0); Albumin/Globulin Ratio 0.8 (0.8-1.8); Alk Phos 72 U/L (50-136); Anion Gap 7 mmol/L (6-16); Aspartate Aminotrans (AST/SGOT 27 U/L (12-37); Bilirubin, Total 0.3 mg/dL (0.1-1.0); Blood Urea Nitrogen 15 mg/dL (8-24); Bun/Creatinine Ratio 18.6 (12.0-20.0); CO2, Blood 25 mmol/L (21-32); Calcium, Blood 8.4 mg/dL (8.5-10.1); Chloride, Blood 108 mmol/L (98-108); Creatinine, Blood 0.81 mg/dL (0.60-1.20); Globulin, Blood 3.5 g/dL (2.2-4.0); Glomerular Filtration Rate >60 (60-); Glucose, Blood 79 mg/dL (70-99); Magnesium, Blood 2.1 mg/dL (1.6-2.4); Potassium, Blood 4.4 mmol/L (3.5-5.5); Sodium, Blood 140 mmol/L (136-145); Total Protein, Blood 6.4 g/dL (6.4-8.2)
--- NOTE | 2019-07-29 17:30 | NUR ---
SHIFT SUMMARY PT ALERT AND ORIENTED. VS STABLE. PT COMPLAINS OF PAIN TO HIS RIGHT SHOULDER THAT IS SWOLLEN AND MEDICATED ORDERED. PT PROVIDED ARM SLING ORDERED, BUT STATES HE WILL USE IT ONCE HE IS DISCHARGED. NO SIGNS OR SYMPTOMS OF WITHDRAWAL THIS SHIFT. PT ABLE TO AMBULATE WITH SBA NEEDED TO VOID. ORDERS CHANGED TO MEDICAL STATUS. REPORT CALLED TO MEDICAL FLOOR RN. PT TO BE TAKEN UP BY WC.
--- NOTE | 2019-07-29 18:10 | NUR ---
ARRIVES TO FLOOR ABOUT 2 MINUTES AGO. ALERT. PLEASANT. STITCHES TO RT EYEBROW DRY/INTACT.SCABS KNEES AND RT HAND W/NO SIGNS OF INFECTION. STS WILL BE SLEEPING IN ONE HOUR "HAVE NOT SLEPT IN 3 DAYS."JUICE GIVEN. ORIENTED TO ROOM. LUNGS CLEAR. NO ACUTE DISTESS NOTED. WCTM
--- NOTE | 2019-07-29 19:15 | NUR ---
ASSUMED CARE RECEIVED REPORT FROM ELLA WOODY. ASSUMED CARE OF PT. RESTING COMFORTABLY AT THIS TIME, NO S/S ACUTE DISTRESS NOTED. WATCHING TV. COOPERATIVE AND PLEASANT AT THIS TIME. DENIES NEEDS. CALL LIGHT, POSSESSIONS IN REACH, BED ALARM ON. WILL CONTINUE TO MONITOR.
--- NOTE | 2019-07-30 05:46 | NUR ---
SHIFT SUMMARY PT WATCHING TV AT THIS TIME, PLEASANT. HAD PERIODS OF IRRITABILITY AND REFUSAL OF CARES T/O SHIFT. SLEPT T/0. NO ACUTE CHANGES NOTED T/O NIGHT. PT HOPES TO D/C TODAY. DENIES NEEDS AT THIS TIME, CALL LIGHT, POSSESSIONS IN REACH, BED IN LOWEST POSITION WITH ALARMS ON. WILL CONTINUE TO MONITOR UNTIL DAY RN ASSUMES CARE.
[2019-07-30] MEDS ORDERED: OLAN10 PO ×2 (09:23)
[2019-07-30] MEDS ORDERED: IBUP600 PO ×2 (09:24)
[2019-07-30] MEDS ORDERED: SERT50 PO ×2 (09:24)
--- NOTE | 2019-07-30 09:34 | NUR ---
I APPROACHED HIM TO ASK HIM WHAT PHARMACY HE WOULD LIKE ME TO CALL HIS RX'S TO. HE SAID NONE. HE WILL NOT TAKE THE MEDICINES. I WENT OVER THE 3 MEDICINES WITH HIM. HE CONTINUED TO SAY NO. "ALL I NEED IS MARAJUANA AND ALCOHOL. I DON'T NEED NO OTHER DRUGS." WHEN I ASKED WHO HIS PCP IS, HE SAID" NO ONE. I FIRED HER. I DON'T WANT NOTHIN TO DO WITH THE [facility]. I'M SICK OF THEM TREATING ME LIKE SH--." HE ALSO SAID HE DOESN'T WANT HIS WALKER HE HAS IN THE ROOM FROM THE AL. I ASKED HIM TO NOT LEAVE IT HERE. "YOU CAN THROW IT AWAY. I DON'T CARE. I DON'T WANT NOTHIN FROM THE AL."
--- NOTE | 2019-07-30 11:12 | NUR ---
PT DISCHARGED THE PT DECLINED DISCHARGE ORDER PAPER, PT REPORTED THAT HE DID NOT WANT A FOLLOW UP APPOINTMENT SCHEDULED AND THEAT HE WOULKD NOT PICK ANY OF HIS ORDERED PRESCRIPTIONS, THE PT WAS REMINDED THAT HE NEEDED TO HAVE HIS SUTRES OVER HIS EYE TAKEN OUT WITHIN 12 DAYS, THE PT WAS ESCORTED VIA WHEELCHAIR ACCOMPAINIED BY THE EDGE BASTER, PT APPEARED TO BE BREATHING EASILY ON RA
== END 2019-07-30 09:30 | disposition home or self-care (01) ==
LOC: ER 17:40 → PCU 21:11 → MEDS 07-29 18:01 → ENPENDDIS 07-30 09:14 → MEDS 07-30 09:30
PROVIDERS: Emergency Medicine; Internal Medicine; ADMIT Internal Medicine
DX: F10.239 Alcohol dependence with withdrawal, unspecified (principal); G40.89 Other seizures; E87.6 Hypokalemia; Z59.0 Homelessness; M75.00 Adhesive capsulitis of unspecified shoulder; F31.89 Other bipolar disorder; J44.9 Chronic obstructive pulmonary disease, unspecified; K21.9 Gastro-esophageal reflux disease without esophagitis; I10 Essential (primary) hypertension; I48.91 Unspecified atrial fibrillation; F17.210 Nicotine dependence, cigarettes, uncomplicated; Z88.8 Allergy status to other drugs, medicaments and biological substances; Z88.2 Allergy status to sulfonamides; Z79.899 Other long term (current) drug therapy
CPT/HCPCS: 12011; 36415; 70450; 72125; 73221; 80048; 80053; 83735; 84146; 85025; 90471; 90714; 93005; 93010; 96361-59; 96374-59; 97163; 99285-25; A9270; A9270-GY; G0480; J1885; J2060; J3411; J3475; J7030; J7042

== ENCOUNTER 2019-08-08 08:22 | Emergency (ER) | payer OTHER, MEDICARE ==
[~2019-08-08] VITALS: Ht 193 cm; Wt 81.7 kg
[~2019-08-08 08:22] MED LIST changes: +IBUP600 PO; +SERT50 PO
[2019-08-08] MEDS ORDERED: HYDCOR2.5C TOP (10:29)
== END 2019-08-08 10:39 | disposition home or self-care (01) ==
LOC: ER 08:22
DX: S00.81XA Abrasion of other part of head, initial encounter (principal); L29.9 Pruritus, unspecified; I10 Essential (primary) hypertension; F43.10 Post-traumatic stress disorder, unspecified; J44.9 Chronic obstructive pulmonary disease, unspecified; I48.91 Unspecified atrial fibrillation; F31.9 Bipolar disorder, unspecified; K21.9 Gastro-esophageal reflux disease without esophagitis; F17.200 Nicotine dependence, unspecified, uncomplicated; Z59.0 Homelessness; Z88.8 Allergy status to other drugs, medicaments and biological substances; Z88.2 Allergy status to sulfonamides; Z79.899 Other long term (current) drug therapy; X58.XXXA Exposure to other specified factors, initial encounter
CPT/HCPCS: 99283

== ENCOUNTER 2019-08-10 19:56 | Inpatient (IN) | payer OTHER, MEDICARE ==
[~2019-08-10] VITALS: Ht 193 cm; Wt 88.2 kg
[~2019-08-10 19:56] MED LIST changes: +HYDCOR2.5C TOP
[2019-08-10 20:34] LABS: BASOPHILS ABSOLUTE AUTO 0.06 K/mm3 (0.00-0.23); BASOPHILS PERCENT AUTO 1 % (0-2); EOSINOPHILS ABSOLUTE AUTO 0.12 K/mm3 (0.00-0.68); EOSINOPHILS PERCENT AUTO 1 % (0-6); Hematocrit 33.7 % (37.0-53.0); Hemoglobin 10.3 g/dL (13.5-17.5); IMMATURE GRAN ABSOLUTE AUTO 0.02 K/mm3 (0.00-0.10); IMMATURE GRAN PERCENT AUTO 0 % (0-1); LYMPHOCYTES PERCENT AUTO 10 % (21-46); MONOCYTES ABSOLUTE AUTO 0.67 K/mm3 (0.16-1.47); MONOCYTES PERCENT AUTO 8 % (4-13); Mean Corpuscular HGB 25.1 pg (26.0-34.0); Mean Corpuscular HGB Conc 30.6 g/dL (31.5-36.5); Mean Corpuscular Volume 82 fL (80-100); Mean Platelet Volume 9.5 fL (9.1-12.4); NEUTROPHILS ABSOLUTE AUTO 6.74 K/mm3 (1.96-9.15); NEUTROPHILS PERCENT AUTO 80 % (41-73); Platelet Count 316 K/mm3 (150-400); RDW Coefficient Variation 17.5 % (11.7-14.2); RDW Standard Deviation 53.1 fL (35.1-46.3); Red Blood Cell Count 4.11 M/mm3 (4.30-5.90); White Blood Cell Count 8.41 K/mm3 (4.00-11.30)
[2019-08-10 20:55] LABS: Alanine Aminotransfer (ALT/SGP 41 U/L (12-78); Albumin, Blood 3.2 g/dL (3.4-5.0); Alk Phos 111 U/L (50-136); Anion Gap 4 mmol/L (6-16); Aspartate Aminotrans (AST/SGOT 44 U/L (12-37); Bilirubin, Total 0.4 mg/dL (0.1-1.0); Blood Urea Nitrogen 12 mg/dL (8-24); CO2, Blood 31 mmol/L (21-32); Calcium, Blood 8.1 mg/dL (8.5-10.1); Chloride, Blood 104 mmol/L (98-108); Creatinine, Blood 0.92 mg/dL (0.60-1.20); Globulin, Blood 3.3 g/dL (2.2-4.0); Glomerular Filtration Rate >60 (60-); Glucose, Blood 107 mg/dL (70-99); Sodium, Blood 139 mmol/L (136-145); Total Protein, Blood 6.5 g/dL (6.4-8.2); Troponin I 0.055 ng/mL (0.000-0.040)
[2019-08-10] MEDS ORDERED: NAPR500 PO (21:08)
[2019-08-11 01:37] LABS: Adenovirus Not Detected (NOT DETECT); Bordetella pertussis Not Detected (NOT DETECT); Chlamydophila pneumoniae Not Detected (NOT DETECT); Coronavirus 229E Not Detected (NOT DETECT); Coronavirus HKU1 Not Detected (NOT DETECT); Coronavirus NL63 Not Detected (NOT DETECT); Coronavirus OC43 Not Detected (NOT DETECT); Human Metapneumovirus Not Detected (NOT DETECT); Human Rhinovirus/Enterovirus Not Detected (NOT DETECT); Influenza A/2009-H1 Not Detected (NOT DETECT); Influenza A/H1 Not Detected (NOT DETECT); Influenza A/H3 Not Detected (NOT DETECT); Influenza B Not Detected (NOT DETECT); Mycoplasma pneumoniae Not Detected (NOT DETECT); Parainfluenza Virus 1 Not Detected (NOT DETECT); Parainfluenza Virus 2 Not Detected (NOT DETECT); Parainfluenza Virus 3 Not Detected (NOT DETECT); Parainfluenza Virus 4 Not Detected (NOT DETECT); Respiratory Syncytial Virus Not Detected (NOT DETECT)
[2019-08-11 05:06] LABS: BASOPHILS ABSOLUTE AUTO 0.01 K/mm3 (0.00-0.23); BASOPHILS PERCENT AUTO 0 % (0-2); EOSINOPHILS PERCENT AUTO 0 % (0-6); Hematocrit 33.4 % (37.0-53.0); Hemoglobin 10.4 g/dL (13.5-17.5); IMMATURE GRAN ABSOLUTE AUTO 0.02 K/mm3 (0.00-0.10); IMMATURE GRAN PERCENT AUTO 0 % (0-1); LYMPHOCYTES ABSOLUTE AUTO 0.14 K/mm3 (0.84-5.20); LYMPHOCYTES PERCENT AUTO 2 % (21-46); MONOCYTES ABSOLUTE AUTO 0.04 K/mm3 (0.16-1.47); MONOCYTES PERCENT AUTO 1 % (4-13); Mean Corpuscular HGB 24.8 pg (26.0-34.0); Mean Corpuscular HGB Conc 31.1 g/dL (31.5-36.5); Mean Corpuscular Volume 80 fL (80-100); Mean Platelet Volume 9.5 fL (9.1-12.4); NEUTROPHILS ABSOLUTE AUTO 6.14 K/mm3 (1.96-9.15); NEUTROPHILS PERCENT AUTO 97 % (41-73); Platelet Count 317 K/mm3 (150-400); RDW Coefficient Variation 17.5 % (11.7-14.2); RDW Standard Deviation 51.3 fL (35.1-46.3); Red Blood Cell Count 4.19 M/mm3 (4.30-5.90); White Blood Cell Count 6.35 K/mm3 (4.00-11.30)
[2019-08-11 05:26] LABS: Alanine Aminotransfer (ALT/SGP 37 U/L (12-78); Albumin, Blood 3.1 g/dL (3.4-5.0); Albumin/Globulin Ratio 0.9 (0.8-1.8); Alk Phos 113 U/L (50-136); Anion Gap 4 mmol/L (6-16); Aspartate Aminotrans (AST/SGOT 32 U/L (12-37); Bilirubin, Total 0.4 mg/dL (0.1-1.0); Blood Urea Nitrogen 12 mg/dL (8-24); Bun/Creatinine Ratio 15.5 (12.0-20.0); CO2, Blood 30 mmol/L (21-32); CPK Creatine Kinase 98 U/L (39-308); Chloride, Blood 104 mmol/L (98-108); Creatinine, Blood 0.78 mg/dL (0.60-1.20); Globulin, Blood 3.5 g/dL (2.2-4.0); Glomerular Filtration Rate >60 (60-); Glucose, Blood 148 mg/dL (70-99); Potassium, Blood 3.8 mmol/L (3.5-5.5); Sodium, Blood 138 mmol/L (136-145); Total Protein, Blood 6.6 g/dL (6.4-8.2); Troponin I 0.039 ng/mL (0.000-0.040)
--- NOTE | 2019-08-11 05:30 | NUR ---
ALGOLOGIST SUMMARY PT ARRIVED TO UNIT AT 0012. APPEARED DROWSY, FELL ASLEEP IN BETWEEN ADMISSION QUESTIONS. MRSA IN THE WOUNDS. ON CONTACT PRECAUTION. DENIES CHEST PAIN, NAUSEA. I DID NOT NOTICE ANY SOB, HOWEVER, PT HAS SLEPT ALL NIGHT. VSS. SR IN THE 80'S. DIURESING WELL. URINE VERY LIGHT IN COLOR.
--- NOTE | 2019-08-11 12:26 | NUR ---
Echocardiogram performed.
[2019-08-11 13:06] LABS: Troponin I 0.039 ng/mL (0.000-0.040)
--- NOTE | 2019-08-11 13:16 | NUR ---
PT CIWAS CONTINUE TO BE NEGATIVE FOR WITHDRAWL. SPOKE TO THE PT ABOUT HIS DRINKING HABBITS AND HE STATED HE DOES NOT DRINK THAT MUCH ANYMORE. PT STATED HIS LAST DRINK WAS 4-5 DAYS AGO AND WAS ABOUT A HALF OF A "WICKED APPLE CIDER." PT C/O GERD THIS AFTERNOON AND REQUESTED SOMETHING FOR IT. SPOKE TO THE PT AND HE STATED THAT HE HAS A NEW SCRIPT FOR PROTONIX AT THE PHARMACY FOR WHEN HE HAS THE MONEY TO PICK IT UP. PT IS UNSURE OF THE DOSE IT IS NEW TO HIM.
--- NOTE | 2019-08-11 15:21 | NUR ---
CALLED DR HEMPHILL SPOKE ABOUT THE PT GERD AND THE CONVERSATION HAD EARLIER ABOUT PROTONIX. ALSO THE LAB CALLED AND THE SPUTUM SAMPLE SENT WAS INSUFFICENT ORDER RECIEVED TO CANCEL SPUTUM CULTURE.
--- NOTE | 2019-08-11 19:55 | NUR ---
SHIFT SUMMARY- PT HAD A FULL SHOWER TODAY. BANDAGE ON HIS R HAND WAS CHANGED AND PHOTOS TAKEN AND PLACED IN THE CHART. PT C/O A SORE ON HIS RIGHT ANKLE, FOUND A PIECE OF SKIN TONED TAPE THERE, WHEN THE TAPE WAS REMOVED THERE WAS A SMALL DIME SIZE OPEN AREA. CLEANED AND PLACED A MEPILEX. PT STATED IT FEELS BETTER NOW. PT STATED HE STILL FEELS DIZZY WHEN HE STANDS UP HOWEVER HE DOES NOT CALL APPROPRIATELY ALL THE TIME. BED ALARM IS ON FOR SAFETY. PT LAYING IN BED, CALL LIGHT IN REACH, BED ALARM ON FOR SAFETY, NO S&S OF DISTRESS AT THE TIME OF BEDSIDE REPORT.
--- NOTE | 2019-08-12 07:31 | NUR ---
ROOFER HELPER VINYL COATING SUMMARY A/O X4. PLEASANT AND COOPERATIVE. SLEPT ALL NIGHT THIS SHIFT. DENIES PAIN, SOB, NAUSEA. CIWA SCORE OF 0. VSS. NO ACUTE CHANGES.
--- NOTE | 2019-08-12 12:13 | NUR ---
PT IS NO LONGER HAVING ANY S&S OF DYSPNEA. HE STSTED HE DOES FEEL DIZZY SOMETIMES WHEN HE STANDS UP. STAFF ARE DOING SBA FOR SAFETY. PT ALERT AND ORIENTED. PT ASKING IF HE IS SUPPOSED TO GO HOME. PT HAS SHOWN IMPROVEMENT TODAY WHEN COMPARED TO YESTERDAY AND HAS NO C/O PAIN OR S&S OF ANY DISTRESS. SPOKE TO AND THE PLAN IS FOR THE PT TO DC HOME LATER TODAY. PT REQUESTED THAT ALL NEW PRESCRIPTIONS BE SENT TO [facility] [place].
[2019-08-12] MEDS ORDERED: ALBU2.5V5 INH (13:13)
[2019-08-12] MEDS ORDERED: ALBU90OI INH (13:14)
[2019-08-12] MEDS ORDERED: FURO20 PO (13:15)
[2019-08-12] MEDS ORDERED: FLUT1DIS5 INH (13:15)
--- NOTE | 2019-08-12 14:49 | NUR ---
DISCHARGE NOTE- PT ALERT AND ORIENTED. TWO IV'S AND TELE DC'D PRIOR TO DISCHARGE. PT REFUSED NEBULIZER, TOOK THE HARD COPY SCRIPT FOR IT WITH HIM. PT WAS ADIMANT THAT HE DID NOT WANT STAFF TO ARRANGE FOLLOW UP APPOINTMENTS. PER PT STATEMENT HE PLANS TO MOVE TO [place] TO "START FRESH." PT DECLINED ALL FOLLOW UP APPOINTMENTS ALTHOUGH HE STATED HE HAS A PCP [facility] [place]. WHEN THE PAPERWORK FOR PT DISCHARGE WAS PROVIDED HE STATED "IT'S JUST GOING TO GO IN THE [place], I'LL PROBABLY FOLD UP THE MEDICATION LIST AND PUT IT IN MY POCKET." PT WAS WILLING TO WAIT WHILE ARRANGEMENTS WERE MADE FOR A RIDE [facility]. ALL MEDS FAXED TO [facility] [address] IN [place] PER PT REQUEST. NO FURTHER QUESTIONS AT THE TIME OF DISCHARGE. PT WAS ESCORTED OUT VIA TO WAIT FOR HIS TAXI.
== END 2019-08-12 13:50 | disposition home or self-care (01) | DRG 291 ==
LOC: ER 19:56 → MEDS 19:57
PROVIDERS: Physician Assistant; ADMIT Internal Medicine
DX: I11.0 Hypertensive heart disease with heart failure (principal); I50.31 Acute diastolic (congestive) heart failure; J44.1 Chronic obstructive pulmonary disease with (acute) exacerbation; I24.8 Other forms of acute ischemic heart disease; I34.0 Nonrheumatic mitral (valve) insufficiency; Z20.828 Contact with and (suspected) exposure to other viral communicable diseases; F43.10 Post-traumatic stress disorder, unspecified; F31.9 Bipolar disorder, unspecified; K21.9 Gastro-esophageal reflux disease without esophagitis; F17.290 Nicotine dependence, other tobacco product, uncomplicated; F10.20 Alcohol dependence, uncomplicated; Z59.0 Homelessness; Z86.14 Personal history of Methicillin resistant Staphylococcus aureus infection
CPT/HCPCS: 0099U; 36415; 71045; 71260; 80053; 82550; 83880; 84484; 85025; 85379; 93005; 93010; 93306; 94640; 94644; 94760; 96365; 96375; 99285-25; A9270-GY; J0456; J0696; J1940; J2930; J7050; Q9967; U0002

== ENCOUNTER 2019-09-23 04:49 | Emergency (ER) | payer OTHER, MEDICARE ==
[~2019-09-23] VITALS: Ht 193 cm; Wt 90.7 kg
[~2019-09-23 04:49] MED LIST changes: +ALBU2.5V5 INH; +ALBU90OI INH; +FINA5 PO; +FLUT1DIS5 INH; +FURO20 PO; +NAPR500 PO; +PANTOPRAZOLE SO40 M2 PO; +POTA10T PO; +TAMS.4ER PO; +Vitamin D1000 UNI1 PO
[2019-09-28] MEDS ORDERED: ALBU90OI INH (04:20)
[2019-09-28] MEDS ORDERED: TIOT18 INH (04:20)
[2019-09-28] MEDS ORDERED: Prednisone50 MG PO (04:20)
[2019-09-28] MEDS ORDERED: MENTHOL-CAMPHO120 GM TOP (12:44)
[2019-09-28] MEDS ORDERED: FINA5 PO (12:44)
[2019-09-28] MEDS ORDERED: FURO20 PO (12:45)
[2019-09-28] MEDS ORDERED: OLAN10 PO (12:46)
[2019-09-28] MEDS ORDERED: POTA10T PO (12:47)
[2019-09-28] MEDS ORDERED: TAMS.4ER PO (12:47)
[2019-10-06] MEDS ORDERED: Prednisone20 MG PO (14:39)
[2019-10-06] MEDS ORDERED: K-Dur10 MEQ PO (14:39)
[2019-10-06] MEDS ORDERED: Lasix20 MG PO (14:39)
[2019-10-06] MEDS ORDERED: Cardizem CD 12120 MG PO (14:39)
[2019-10-06] MEDS ORDERED: Zithromax250 MG PO (14:39)
[2019-10-11] MEDS ORDERED: AZIT200SU (12:50)
[2019-10-11] MEDS ORDERED: Diltiazem ER120 M2 PO (12:50)
[2019-10-11] MEDS ORDERED: PRED20 PO (12:51)
[2019-10-11] MEDS ORDERED: POTA10T PO (12:51)
[2019-10-14] MEDS ORDERED: Naproxen250 MG PO (18:19)
[2019-10-14] MEDS ORDERED: Vitamin D2000 UNIT PO (18:19)
[2019-10-14] MEDS ORDERED: ALBU90OI INH (18:20)
[2019-10-14] MEDS ORDERED: Protonix40 MG PO (18:20)
[2019-10-14] MEDS ORDERED: TIOT18 INH (18:22)
[2019-10-14] MEDS ORDERED: SYMBICORT 80-10.2 GM INH (18:22)
[2019-10-14] MEDS ORDERED: GABA300 PO (18:34)
[2019-10-14] MEDS ORDERED: Saw Palmetto160 MG PO (18:35)
[2019-10-14] MEDS ORDERED: FURO40 PO (18:47)
[2019-10-17] MEDS ORDERED: DILT180 PO (16:28)
[2019-10-17] MEDS ORDERED: FURO20 PO (16:29)
[2019-10-17] MEDS ORDERED: MIRALAX17 GM PO (16:30)
[2019-10-17] MEDS ORDERED: METO25ER PO (16:30)
[2019-10-17] MEDS ORDERED: ASPI81CH PO (16:30)
[2019-10-17] MEDS ORDERED: XARELTO20 MG PO (16:31)
== END 2019-09-23 07:40 | disposition home or self-care (01) ==
LOC: ER 04:49
DX: S00.33XA Contusion of nose, initial encounter (principal); Z88.2 Allergy status to sulfonamides; Z88.8 Allergy status to other drugs, medicaments and biological substances; Z79.899 Other long term (current) drug therapy; F43.10 Post-traumatic stress disorder, unspecified; J44.9 Chronic obstructive pulmonary disease, unspecified; F31.9 Bipolar disorder, unspecified; K21.9 Gastro-esophageal reflux disease without esophagitis; Z86.14 Personal history of Methicillin resistant Staphylococcus aureus infection; F17.210 Nicotine dependence, cigarettes, uncomplicated; Y04.0XXA Assault by unarmed brawl or fight, initial encounter
CPT/HCPCS: 70450; 99284-25

== ENCOUNTER 2019-10-07 23:47 | Emergency (ER) | payer OTHER, MEDICARE ==
[~2019-10-07] VITALS: Ht 193 cm; Wt 97.5 kg
[~2019-10-07 23:47] MED LIST changes: +Cardizem CD 12120 MG PO; +K-Dur10 MEQ PO; +MENTHOL-CAMPHO120 GM TOP; +Prednisone20 MG PO; +Prednisone50 MG PO; +TIOT18 INH; +Zithromax250 MG PO
[2019-10-07] MEDS ORDERED: Diltiazem ER120 M2 PO (23:59)
[2019-10-07] MEDS ORDERED: OLANZAPINE20 M1 PO (23:59)
[2019-10-08 00:45] LABS: BASOPHILS ABSOLUTE AUTO 0.02 K/mm3 (0.00-0.23); BASOPHILS PERCENT AUTO 0 % (0-2); EOSINOPHILS ABSOLUTE AUTO 0.01 K/mm3 (0.00-0.68); EOSINOPHILS PERCENT AUTO 0 % (0-6); Hematocrit 31.5 % (37.0-53.0); Hemoglobin 9.6 g/dL (13.5-17.5); IMMATURE GRAN ABSOLUTE AUTO 0.04 K/mm3 (0.00-0.10); IMMATURE GRAN PERCENT AUTO 0 % (0-1); LYMPHOCYTES ABSOLUTE AUTO 0.56 K/mm3 (0.84-5.20); LYMPHOCYTES PERCENT AUTO 4 % (21-46); MONOCYTES ABSOLUTE AUTO 0.58 K/mm3 (0.16-1.47); MONOCYTES PERCENT AUTO 4 % (4-13); Mean Corpuscular HGB 24.7 pg (26.0-34.0); Mean Corpuscular HGB Conc 30.5 g/dL (31.5-36.5); Mean Corpuscular Volume 81 fL (80-100); Mean Platelet Volume 9.8 fL (9.1-12.4); NEUTROPHILS ABSOLUTE AUTO 12.05 K/mm3 (1.96-9.15); NEUTROPHILS PERCENT AUTO 91 % (41-73); Platelet Count 308 K/mm3 (150-400); RDW Coefficient Variation 18.7 % (11.7-14.2); RDW Standard Deviation 54.8 fL (35.1-46.3); Red Blood Cell Count 3.88 M/mm3 (4.30-5.90); White Blood Cell Count 13.26 K/mm3 (4.00-11.30)
[2019-10-08 01:05] LABS: Alanine Aminotransfer (ALT/SGP 57 U/L (12-78); Albumin, Blood 2.6 g/dL (3.4-5.0); Albumin/Globulin Ratio 0.9 (0.8-1.8); Alk Phos 97 U/L (50-136); Anion Gap 4 mmol/L (6-16); Aspartate Aminotrans (AST/SGOT 36 U/L (12-37); Bilirubin, Total 0.4 mg/dL (0.1-1.0); Blood Urea Nitrogen 29 mg/dL (8-24); Bun/Creatinine Ratio 26.6 (12.0-20.0); CO2, Blood 29 mmol/L (21-32); Calcium, Blood 8.1 mg/dL (8.5-10.1); Chloride, Blood 107 mmol/L (98-108); Creatinine, Blood 1.09 mg/dL (0.60-1.20); Globulin, Blood 2.9 g/dL (2.2-4.0); Glomerular Filtration Rate >60 (60-); Glucose, Blood 115 mg/dL (70-99); Potassium, Blood 4.6 mmol/L (3.5-5.5); Sodium, Blood 140 mmol/L (136-145); Total Protein, Blood 5.5 g/dL (6.4-8.2); Troponin I 0.056 ng/mL (0.000-0.040)
[2019-10-11] MEDS ORDERED: Diltiazem ER120 M2 PO (12:50)
[2019-10-11] MEDS ORDERED: AZIT200SU (12:50)
[2019-10-11] MEDS ORDERED: PRED20 PO (12:51)
[2019-10-11] MEDS ORDERED: POTA10T PO (12:51)
[2019-10-14] MEDS ORDERED: Vitamin D2000 UNIT PO (18:19)
[2019-10-14] MEDS ORDERED: Naproxen250 MG PO (18:19)
[2019-10-14] MEDS ORDERED: ALBU90OI INH (18:20)
[2019-10-14] MEDS ORDERED: Protonix40 MG PO (18:20)
[2019-10-14] MEDS ORDERED: TIOT18 INH (18:22)
[2019-10-14] MEDS ORDERED: SYMBICORT 80-10.2 GM INH (18:22)
[2019-10-14] MEDS ORDERED: GABA300 PO (18:34)
[2019-10-14] MEDS ORDERED: Saw Palmetto160 MG PO (18:35)
[2019-10-14] MEDS ORDERED: FURO40 PO (18:47)
[2019-10-17] MEDS ORDERED: DILT180 PO (16:28)
[2019-10-17] MEDS ORDERED: FURO20 PO (16:29)
[2019-10-17] MEDS ORDERED: METO25ER PO (16:30)
[2019-10-17] MEDS ORDERED: ASPI81CH PO (16:30)
[2019-10-17] MEDS ORDERED: MIRALAX17 GM PO (16:30)
[2019-10-17] MEDS ORDERED: XARELTO20 MG PO (16:31)
[2019-10-24] MEDS ORDERED: AZIT250 PO (07:36)
== END 2019-10-08 03:50 | disposition home or self-care (01) ==
LOC: ER 23:47
PROVIDERS: Emergency Medicine
DX: R06.02 Shortness of breath (principal); R79.89 Other specified abnormal findings of blood chemistry; Z88.2 Allergy status to sulfonamides; Z88.8 Allergy status to other drugs, medicaments and biological substances; Z79.899 Other long term (current) drug therapy; J44.9 Chronic obstructive pulmonary disease, unspecified; F43.10 Post-traumatic stress disorder, unspecified; F31.9 Bipolar disorder, unspecified; I48.91 Unspecified atrial fibrillation; I50.30 Unspecified diastolic (congestive) heart failure; F17.210 Nicotine dependence, cigarettes, uncomplicated
CPT/HCPCS: 36415; 71045; 80053; 83880; 84145; 84484; 85025; 93005; 93010; 96374; 99285-25; J1940

== ENCOUNTER 2019-10-08 23:14 | Emergency (ER) | payer OTHER, MEDICARE ==
[~2019-10-08] VITALS: Ht 193 cm; Wt 99.8 kg
[~2019-10-08 23:14] MED LIST changes: +Diltiazem ER120 M2 PO; +OLANZAPINE20 M1 PO
[2019-10-11] MEDS ORDERED: AZIT200SU (12:50)
[2019-10-11] MEDS ORDERED: Diltiazem ER120 M2 PO (12:50)
[2019-10-11] MEDS ORDERED: POTA10T PO (12:51)
[2019-10-11] MEDS ORDERED: PRED20 PO (12:51)
[2019-10-14] MEDS ORDERED: Vitamin D2000 UNIT PO (18:19)
[2019-10-14] MEDS ORDERED: Naproxen250 MG PO (18:19)
[2019-10-14] MEDS ORDERED: Protonix40 MG PO (18:20)
[2019-10-14] MEDS ORDERED: ALBU90OI INH (18:20)
[2019-10-14] MEDS ORDERED: TIOT18 INH (18:22)
[2019-10-14] MEDS ORDERED: SYMBICORT 80-10.2 GM INH (18:22)
[2019-10-14] MEDS ORDERED: GABA300 PO (18:34)
[2019-10-14] MEDS ORDERED: Saw Palmetto160 MG PO (18:35)
[2019-10-14] MEDS ORDERED: FURO40 PO (18:47)
[2019-10-17] MEDS ORDERED: DILT180 PO (16:28)
[2019-10-17] MEDS ORDERED: FURO20 PO (16:29)
[2019-10-17] MEDS ORDERED: ASPI81CH PO (16:30)
[2019-10-17] MEDS ORDERED: MIRALAX17 GM PO (16:30)
[2019-10-17] MEDS ORDERED: METO25ER PO (16:30)
[2019-10-17] MEDS ORDERED: XARELTO20 MG PO (16:31)
[2019-10-24] MEDS ORDERED: AZIT250 PO (07:36)
== END 2019-10-09 00:14 | disposition home or self-care (01) ==
LOC: ER 23:14
DX: J44.9 Chronic obstructive pulmonary disease, unspecified (principal); I48.91 Unspecified atrial fibrillation; I50.9 Heart failure, unspecified; Z88.2 Allergy status to sulfonamides; Z88.8 Allergy status to other drugs, medicaments and biological substances; Z79.899 Other long term (current) drug therapy; F43.10 Post-traumatic stress disorder, unspecified; F31.9 Bipolar disorder, unspecified; K21.9 Gastro-esophageal reflux disease without esophagitis; F17.210 Nicotine dependence, cigarettes, uncomplicated
CPT/HCPCS: 94640; 99285-25

== ENCOUNTER 2019-10-10 17:49 | Emergency (ER) | payer OTHER, MEDICARE ==
[~2019-10-10] VITALS: Ht 193 cm; Wt 108.9 kg
[2019-10-11] MEDS ORDERED: AZIT200SU (12:50)
[2019-10-11] MEDS ORDERED: Diltiazem ER120 M2 PO (12:50)
[2019-10-11] MEDS ORDERED: PRED20 PO (12:51)
[2019-10-11] MEDS ORDERED: POTA10T PO (12:51)
[2019-10-14] MEDS ORDERED: Vitamin D2000 UNIT PO (18:19)
[2019-10-14] MEDS ORDERED: Naproxen250 MG PO (18:19)
[2019-10-14] MEDS ORDERED: ALBU90OI INH (18:20)
[2019-10-14] MEDS ORDERED: Protonix40 MG PO (18:20)
[2019-10-14] MEDS ORDERED: SYMBICORT 80-10.2 GM INH (18:22)
[2019-10-14] MEDS ORDERED: TIOT18 INH (18:22)
[2019-10-14] MEDS ORDERED: GABA300 PO (18:34)
[2019-10-14] MEDS ORDERED: Saw Palmetto160 MG PO (18:35)
[2019-10-14] MEDS ORDERED: FURO40 PO (18:47)
[2019-10-17] MEDS ORDERED: DILT180 PO (16:28)
[2019-10-17] MEDS ORDERED: FURO20 PO (16:29)
[2019-10-17] MEDS ORDERED: ASPI81CH PO (16:30)
[2019-10-17] MEDS ORDERED: METO25ER PO (16:30)
[2019-10-17] MEDS ORDERED: MIRALAX17 GM PO (16:30)
[2019-10-17] MEDS ORDERED: XARELTO20 MG PO (16:31)
[2019-10-24] MEDS ORDERED: AZIT250 PO (07:36)
== END 2019-10-10 20:05 | disposition home or self-care (01) ==
LOC: ER 17:49
DX: Z03.89 Encounter for observation for other suspected diseases and conditions ruled out (principal); Z88.2 Allergy status to sulfonamides; Z88.8 Allergy status to other drugs, medicaments and biological substances; Z79.899 Other long term (current) drug therapy; F31.9 Bipolar disorder, unspecified; F43.10 Post-traumatic stress disorder, unspecified; J44.9 Chronic obstructive pulmonary disease, unspecified; K21.9 Gastro-esophageal reflux disease without esophagitis; I48.91 Unspecified atrial fibrillation; I50.30 Unspecified diastolic (congestive) heart failure; F17.210 Nicotine dependence, cigarettes, uncomplicated
CPT/HCPCS: 99283

== ENCOUNTER 2019-10-20 17:20 | Emergency (ER) | payer OTHER, MEDICARE ==
[~2019-10-20] VITALS: Ht 180.3 cm; Wt 90.7 kg
[~2019-10-20 17:20] MED LIST changes: +ASPI81CH PO; +AZIT200SU; +DILT180 PO; +FURO40 PO; +METO25ER PO; +MIRALAX17 GM PO; +Naproxen250 MG PO; +PRED20 PO; +Protonix40 MG PO; +SYMBICORT 80-10.2 GM INH; +Saw Palmetto160 MG PO; +Vitamin D2000 UNIT PO; +XARELTO20 MG PO
[2019-10-20 18:29] LABS: BASOPHILS ABSOLUTE AUTO 0.11 K/mm3 (0.00-0.23); BASOPHILS PERCENT AUTO 1 % (0-2); EOSINOPHILS ABSOLUTE AUTO 0.24 K/mm3 (0.00-0.68); EOSINOPHILS PERCENT AUTO 2 % (0-6); Hematocrit 33.5 % (37.0-53.0); Hemoglobin 9.9 g/dL (13.5-17.5); IMMATURE GRAN ABSOLUTE AUTO 0.04 K/mm3 (0.00-0.10); IMMATURE GRAN PERCENT AUTO 0 % (0-1); LYMPHOCYTES PERCENT AUTO 9 % (21-46); MONOCYTES ABSOLUTE AUTO 0.77 K/mm3 (0.16-1.47); MONOCYTES PERCENT AUTO 7 % (4-13); Mean Corpuscular HGB 24.9 pg (26.0-34.0); Mean Corpuscular HGB Conc 29.6 g/dL (31.5-36.5); Mean Corpuscular Volume 84 fL (80-100); Mean Platelet Volume 9.6 fL (9.1-12.4); NEUTROPHILS ABSOLUTE AUTO 8.39 K/mm3 (1.96-9.15); NEUTROPHILS PERCENT AUTO 80 % (41-73); Platelet Count 300 K/mm3 (150-400); RDW Standard Deviation 55.4 fL (35.1-46.3); Red Blood Cell Count 3.97 M/mm3 (4.30-5.90); White Blood Cell Count 10.45 K/mm3 (4.00-11.30)
[2019-10-20 18:51] LABS: Alanine Aminotransfer (ALT/SGP 49 U/L (12-78); Albumin/Globulin Ratio 0.9 (0.8-1.8); Alk Phos 101 U/L (50-136); Anion Gap 3 mmol/L (6-16); Aspartate Aminotrans (AST/SGOT 49 U/L (12-37); Bilirubin, Total 0.3 mg/dL (0.1-1.0); Blood Urea Nitrogen 36 mg/dL (8-24); Bun/Creatinine Ratio 28.8 (12.0-20.0); CO2, Blood 30 mmol/L (21-32); Calcium, Blood 8.3 mg/dL (8.5-10.1); Chloride, Blood 102 mmol/L (98-108); Creatinine, Blood 1.25 mg/dL (0.60-1.20); Globulin, Blood 3.2 g/dL (2.2-4.0); Glomerular Filtration Rate >60 (60-); Glucose, Blood 90 mg/dL (70-99); Potassium, Blood 5.2 mmol/L (3.5-5.5); Sodium, Blood 135 mmol/L (136-145); Total Protein, Blood 6.2 g/dL (6.4-8.2)
[2019-10-20 19:00] LABS: Troponin I 0.024 ng/mL (0.000-0.040)
[2019-10-24] MEDS ORDERED: AZIT250 PO (07:36)
[2019-10-26] MEDS ORDERED: ALBU2.5V5 INH (12:07)
[2019-10-26] MEDS ORDERED: OLAN10A MM (12:09)
[2019-10-26] MEDS ORDERED: FURO20 PO (12:15)
== END 2019-10-20 18:39 | disposition left against medical advice (07) ==
LOC: ER 17:20
PROVIDERS: Emergency Medicine
DX: R06.02 Shortness of breath (principal); Z88.2 Allergy status to sulfonamides; Z88.8 Allergy status to other drugs, medicaments and biological substances; Z79.899 Other long term (current) drug therapy; Z79.82 Long term (current) use of aspirin; F43.10 Post-traumatic stress disorder, unspecified; J44.9 Chronic obstructive pulmonary disease, unspecified; F32.9 Major depressive disorder, single episode, unspecified; K21.9 Gastro-esophageal reflux disease without esophagitis; I48.91 Unspecified atrial fibrillation; I50.32 Chronic diastolic (congestive) heart failure; F17.210 Nicotine dependence, cigarettes, uncomplicated
CPT/HCPCS: 36415; 80053; 83880; 84484; 85025; 93005; 93010; 99285-25

== ENCOUNTER 2019-10-27 11:13 | Observation (INO) | payer OTHER, MEDICARE ==
[~2019-10-27] VITALS: Ht 185.4 cm; Wt 117.9 kg
[~2019-10-27 11:13] MED LIST changes: -ASPI81CH PO; +AZIT250 PO; +Aspirin EC81 MG PO
[2019-10-27 11:51] LABS: BASOPHILS ABSOLUTE AUTO 0.03 K/mm3 (0.00-0.23); BASOPHILS PERCENT AUTO 0 % (0-2); EOSINOPHILS ABSOLUTE AUTO 0.04 K/mm3 (0.00-0.68); EOSINOPHILS PERCENT AUTO 0 % (0-6); Hematocrit 36.2 % (37.0-53.0); Hemoglobin 10.6 g/dL (13.5-17.5); IMMATURE GRAN ABSOLUTE AUTO 0.06 K/mm3 (0.00-0.10); IMMATURE GRAN PERCENT AUTO 1 % (0-1); LYMPHOCYTES ABSOLUTE AUTO 0.73 K/mm3 (0.84-5.20); LYMPHOCYTES PERCENT AUTO 6 % (21-46); MONOCYTES ABSOLUTE AUTO 1.21 K/mm3 (0.16-1.47); MONOCYTES PERCENT AUTO 9 % (4-13); Mean Corpuscular HGB 24.4 pg (26.0-34.0); Mean Corpuscular HGB Conc 29.3 g/dL (31.5-36.5); Mean Corpuscular Volume 83 fL (80-100); Mean Platelet Volume 9.5 fL (9.1-12.4); NEUTROPHILS ABSOLUTE AUTO 11.16 K/mm3 (1.96-9.15); NEUTROPHILS PERCENT AUTO 84 % (41-73); NRBC ABSOLUTE 0.03 K/mm3 (0.00-0.02); NRBC Auto 0.2 /100 WBC (0.0-0.2); Platelet Count 343 K/mm3 (150-400); RDW Coefficient Variation 17.2 % (11.7-14.2); RDW Standard Deviation 52.8 fL (35.1-46.3); Red Blood Cell Count 4.34 M/mm3 (4.30-5.90); White Blood Cell Count 13.23 K/mm3 (4.00-11.30)
[2019-10-27 12:03] LABS: Alanine Aminotransfer (ALT/SGP 55 U/L (12-78); Albumin, Blood 3.2 g/dL (3.4-5.0); Albumin/Globulin Ratio 0.8 (0.8-1.8); Alk Phos 111 U/L (50-136); Anion Gap 4 mmol/L (6-16); Aspartate Aminotrans (AST/SGOT 35 U/L (12-37); Bilirubin, Total 0.3 mg/dL (0.1-1.0); Blood Urea Nitrogen 35 mg/dL (8-24); Bun/Creatinine Ratio 33.3 (12.0-20.0); CO2, Blood 33 mmol/L (21-32); Calcium, Blood 8.8 mg/dL (8.5-10.1); Chloride, Blood 95 mmol/L (98-108); Creatinine, Blood 1.05 mg/dL (0.60-1.20); Globulin, Blood 3.9 g/dL (2.2-4.0); Glomerular Filtration Rate >60 (60-); Glucose, Blood 116 mg/dL (70-99); Potassium, Blood 4.6 mmol/L (3.5-5.5); Sodium, Blood 132 mmol/L (136-145); Total Protein, Blood 7.1 g/dL (6.4-8.2)
--- NOTE | 2019-10-27 16:01 | NUR ---
Assumed Care Received report from Mike ED-RN, patient arrived to unit on [facility]. Transferred self over to bed. Patient appears to be agitated. When wind turbine technician attempted to assist patient out of the ragate, patient forcefully pushed wind turbine technician which was witnessed by this RN. A/O x 2 to self and situation, stated he was at [facility] in [place]. When asked about the year, patient stated "3030". Patient appears to be extremely irritable and agitated with questions, refused to answer any questions RE his current medications. Refused to answer questions about History. This RN was able to get some assessment completed as patient allowed. When attempting to weight the patient, he pushed this RN not allowing me to remove the extra pillow on the bed. No weight was obtained, pt refused to use standing scale also. Patient continues to sigh with every question and even interrupts or ignores questions asked. Patient does state he wants to be cared for, but seems to lack the desire to follow instructions. Call light near by, bed in lowest position, snacks provided per patient request. Patient also appeared to be dyspneic with activity. On RA, no tele. Refusing SCD's at this time. Will continue to monitor.
--- NOTE | 2019-10-27 17:26 | NUR ---
Shift Summary A/O to self and situation. Patient does not like to be asked many questions. C/O headache, when asked how severe numerically, patient repeatedly said "10,000.... 10,000.... 10,000! God damn, fuck! I don't give a damn!" Patient is impulsive and only calls for needs when he feels like it. Used call light 10+ times in a span of less than 2 minutes repeatedly pushing the pain/call/bathroom buttons simultaneously. Upon entering room, patient stated he wanted yina crackers. R posterior ankle has what appears to be a small skin tear, bandage applied, to note, patient is on xarelto. L/S are wheezy throughout, mild dyspnea with activity. Will continue to monitor.
--- NOTE | 2019-10-27 18:46 | NUR ---
Fluid Restriction BNP > 300, patient receiving lasix, and has Hx of HF. Edematous in lower extremities and thighs. Discuss with Dr. Pop, fluid restriction of 1200 cc ordered.
--- NOTE | 2019-10-27 20:02 | NUR ---
PT SPEAKING FAST, DISMISSIVE, REFUSING NURSING ASSESSMENT. WORD SALAD. NOT CONVERSATIONAL. ACCEPTS HS MED AND REQUESTED NEB TX- GIVEN. RESPS APPEAR REG, NON-LABORED. NO COUGHING AT THIS TIME. MADE COMMENT ABOUT HAVING MEDS IN HIS POSSESSION BUT REFUSING TO ALLOW STAFF TO LOOK IN BELONGINGS. STATES HE WILL NOT TAKE HIS OWN MEDS WHILE IN THE HOSPITAL.
--- NOTE | 2019-10-27 22:57 | NUR ---
PER ROLL OVER PRESS OPERATOR REPORTS, PT'S ROOM SMELLS LIKE CIGARETTE SMOKE. SPOKE W/ PT AND INFORMED HIM HE IS NOT TO SMOKE IN HIS ROOM. PT STATES HE HAS NOT. ENCOURAGED PT TO GO OUTSIDE TO SMOKE. PT DID. WHILE PT WAS OUT, THIS RN OBSERVED CIGARETTE ABISAI ON INSIDE OF TOILET BOWL. RECEIVED CALL STATING PT WAS OBSERVED URINATING ON STATUE IN THE BUILDING. INFORMED PT HE LOST HIS PRIVILEGE TO GO OUT TO SMOKE BECAUSE OF THIS PER RN CONCRETE CRAFTSMAN INSTRUCTION. PT WAS FOUND HOLDING UNLIT CIGARETTES OVER TOILET AT TIME HE WAS INFORMED. RETAIL COVERAGE MERCHANDISER LEAD TOLD PT HE IS NOT TO SMOKE IN THE BUILDING. OFFERED NICOTINE PATCH OR ALTERNATIVE. PT WILLINGLY GAVE UP HIS CIGARETTES AND DIRECTOR OF EMAIL MARKETING TO RETAIL COVERAGE MERCHANDISER LEAD BUT REFUSED OFFER FOR NICOTINE ALTERNATIVE AT THIS TIME.
--- NOTE | 2019-10-28 04:33 | NUR ---
SHIFT SUMMARY: BP 154/94, 02 90% AT HS. VS OTHERWISE STABLE. REFUSED AM VITALS. REFUSED NURSING ASSESSMENT. PT HAS SLEPT MOST OF THE NIGHT SINCE MIDNIGHT, EXCEPT WOKE UP TO SHOWER IN THE MIDDLE OF THE NIGHT. MANY REQUESTS FOR SNACKS. APPEARS SOB W/EXERTION. RESPS EVEN. NO DISTRESS. WHEEZE AUDIBLE WHEN PT TALKING TO THIS RN. RT PROVIDING RESP INTERVENTIONS PRN. WILL CONT TO MONITOR.
--- NOTE | 2019-10-28 09:30 | NUR ---
AMA Discharge Summary Patient left AMA. Patient wanted to go outside to smoke but smoking privileges have been taken away due to event last night. Patient became increasingly agitated and dismissive to this RN attempting to rationalize with him. Started calling this RN "cunt" and using his middle finger to flip this RN off. Dr. Pop in to see patient, verbalize that he will be discharging the patient. Patient began throwing items in the room, coffee splatters noted across the room and on the computer inside the room. Flash light found on the ground broken. Patient ambulated in hallway with personal FWW and would not come back to room. States "Doctor said I'm being discharged so I want to go now! Give me my white bag!" Patient continued to called this RN "you stupid ass!" "you cunt!" threatening that he was going to throw coffee in my face. Security was called to assist patient out of the building. Patient refused to wait for discharge orders and also refused to sign AMA paper. Did not listen to reason. laborer Yoli returned personal items in white bag, Nursing Rn Wound Clary and Hospitalist notified of patient leaving AMA. AMA paper signed by this RN and witnessed by Yoli.
--- NOTE | 2019-10-28 09:36 | NUR ---
PT LEFT AMA PT WAS THREATENING NURSE TYRONE OCHOA THAT HE WOULD MAKE HER WEAR HIS COFFEE PT CALLED TYRONE OCHOA A CUNT, FLIPPED HER OFF AND REFUSED TO GO BACK TO HIS ROOM PT WAS THREATENING NURSE TYRONE OCHOA TO GET HIS BAG FROM HIS ROOM OR ELSE THIS INCIDENT HAPPENED IN THE HALLWAY AND SECURITY WAS CALLED TO ASSIST
[2019-10-28] MEDS ORDERED: Prednisone50 MG PO (18:32)
[2019-10-28] MEDS ORDERED: Zithromax250 MG PO (18:32)
[2019-10-28] MEDS ORDERED: ALBU90OI INH (18:32)
[2019-10-29] MEDS ORDERED: Diltiazem ER120 M2 PO (16:21)
[2019-10-29] MEDS ORDERED: ALBU90OI INH (16:23)
== END 2019-10-28 09:34 | disposition left against medical advice (07) ==
LOC: ER 11:13 → MEDS 11:14
PROVIDERS: Emergency Medicine; ADMIT Hospitalist
DX: J44.1 Chronic obstructive pulmonary disease with (acute) exacerbation (principal); K21.9 Gastro-esophageal reflux disease without esophagitis; F32.9 Major depressive disorder, single episode, unspecified; F17.210 Nicotine dependence, cigarettes, uncomplicated; I48.20 Chronic atrial fibrillation, unspecified; J96.21 Acute and chronic respiratory failure with hypoxia; I50.32 Chronic diastolic (congestive) heart failure; Z79.01 Long term (current) use of anticoagulants; J44.9 Chronic obstructive pulmonary disease, unspecified; J90 Pleural effusion, not elsewhere classified; Z59.0 Homelessness; Z88.2 Allergy status to sulfonamides; Z88.8 Allergy status to other drugs, medicaments and biological substances; Z20.828 Contact with and (suspected) exposure to other viral communicable diseases; F12.10 Cannabis abuse, uncomplicated; F15.10 Other stimulant abuse, uncomplicated; Z79.899 Other long term (current) drug therapy
CPT/HCPCS: 36415; 71045; 80053; 83880; 85025; 93005; 93010; 94640; 94644; 94760; 99285-25; A9270; A9270-GY; J7512

== ENCOUNTER 2019-10-29 14:09 | Inpatient (IN) | payer OTHER, MEDICARE ==
[~2019-10-29] VITALS: Ht 193 cm; Wt 115.2 kg
[2019-10-29 15:37] LABS: BASOPHILS ABSOLUTE AUTO 0.01 K/mm3 (0.00-0.23); BASOPHILS PERCENT AUTO 0 % (0-2); EOSINOPHILS PERCENT AUTO 0 % (0-6); Hemoglobin 10.1 g/dL (13.5-17.5); IMMATURE GRAN ABSOLUTE AUTO 0.05 K/mm3 (0.00-0.10); IMMATURE GRAN PERCENT AUTO 0 % (0-1); LYMPHOCYTES ABSOLUTE AUTO 0.46 K/mm3 (0.84-5.20); LYMPHOCYTES PERCENT AUTO 4 % (21-46); MONOCYTES ABSOLUTE AUTO 0.77 K/mm3 (0.16-1.47); MONOCYTES PERCENT AUTO 7 % (4-13); Mean Corpuscular HGB 24.3 pg (26.0-34.0); Mean Corpuscular HGB Conc 30.6 g/dL (31.5-36.5); Mean Corpuscular Volume 80 fL (80-100); Mean Platelet Volume 9.7 fL (9.1-12.4); NEUTROPHILS ABSOLUTE AUTO 10.26 K/mm3 (1.96-9.15); NEUTROPHILS PERCENT AUTO 89 % (41-73); NRBC ABSOLUTE 0.03 K/mm3 (0.00-0.02); NRBC Auto 0.3 /100 WBC (0.0-0.2); Platelet Count 343 K/mm3 (150-400); RDW Coefficient Variation 17.2 % (11.7-14.2); RDW Standard Deviation 49.9 fL (35.1-46.3); Red Blood Cell Count 4.15 M/mm3 (4.30-5.90); White Blood Cell Count 11.55 K/mm3 (4.00-11.30)
[2019-10-29 15:57] LABS: Alanine Aminotransfer (ALT/SGP 73 U/L (12-78); Albumin, Blood 3.4 g/dL (3.4-5.0); Albumin/Globulin Ratio 0.8 (0.8-1.8); Alk Phos 125 U/L (50-136); Anion Gap 4 mmol/L (6-16); Aspartate Aminotrans (AST/SGOT 65 U/L (12-37); Bilirubin, Total 0.7 mg/dL (0.1-1.0); Blood Urea Nitrogen 46 mg/dL (8-24); Bun/Creatinine Ratio 49.1 (12.0-20.0); CO2, Blood 32 mmol/L (21-32); Calcium, Blood 8.9 mg/dL (8.5-10.1); Chloride, Blood 93 mmol/L (98-108); Creatinine, Blood 0.94 mg/dL (0.60-1.20); Ethanol (Alcohol), Blood, Med <3 mg/dL; Globulin, Blood 4.2 g/dL (2.2-4.0); Glomerular Filtration Rate >60 (60-); Glucose, Blood 100 mg/dL (70-99); Potassium, Blood 5.9 mmol/L (3.5-5.5); Sodium, Blood 129 mmol/L (136-145); Total Protein, Blood 7.6 g/dL (6.4-8.2)
[2019-10-29] MEDS ORDERED: Diltiazem ER120 M2 PO (16:21)
[2019-10-29] MEDS ORDERED: ALBU90OI INH (16:23)
[2019-10-29 16:54] LABS: Source, Urine Clean Catch
[2019-10-29 17:13] LABS: Bilirubin, Urine Neg (Neg); Blood, Urine Neg (Neg); Color, Urine Yellow (P-Yellow); Glucose Qualitative, Urine Neg (Neg); Ketones, Urine Neg (Neg); Leukocyte Esterase, Urine Neg (Neg); Nitrite, Urine Neg (Neg); Protein, Urine 2+ (Neg); Urobilinogen, Urine NORM (Normal)
[2019-10-29 17:29] LABS: U Amphetamine Screen Not Detected; U Barbituate Screen Not Detected; U Benzodiazapine Screen Not Detected; U Buprenorphine Screen Not Detected; U Cannabinoids Screen DETECTED; U Cocaine Screen Not Detected; U Methadone Screen Not Detected; U Methamphetamine Screen Not Detected; U Opiates Screen Not Detected; U Oxycodone Screen Not Detected; U Phencyclidine Screen Not Detected; U Propoxyphene Screen Not Detected
[2019-10-29 17:33] LABS: Appearance, Urine Clear (Clear)
[2019-10-29 17:34] LABS: Amorphous Mod (0-Heavy); Bacteria Not Seen /hpf; Red Blood Cells, Urine Rare /hpf (0-2); Squamous Epithelial Cells Not Seen /hpf (Few); White Blood Cells, Urine Not Seen /hpf (0-5)
--- NOTE | 2019-10-29 23:03 | NUR ---
PHYSICIAN NOTIFIED PHYSICIAN NOTIFIED THAT PT IS UNABLE TO TAKE XARELTO D/T ASPIRATION RISK. PHYSICIAN HOLDING XARELTO UNTIL PT ABLE TO SAFELY SWALLOW MEDICATIONS. NO OTHER ANTICOAGULANT ORDERED AT THIS TIME.
--- NOTE | 2019-10-30 03:00 | NUR ---
UPDATE PATIENT SET OFF BED ALARM WHICH BROUGHT STAFF TO THE ROOM. PATIENT FOUND TO ALREADY BE IN THE BATHROOM, STANDING AND ATTEMPTING TO VOID. PATIENT HAD PULLED OFF HIS TELE AND HAS PULLED OUT HIS IV AND MORGAN CATHETER. PATIENT WAS BLEEDING FROM THE TIP OF THE PENIS. PATIENT HAS LEFT A TRAIL OF BLOOD ON THE FLOOR AND HAD BLOOD ALL OVER THE TOLIET. PRESSURE HELD TO THE TIP OF PATIENT'S PENIS UNTIL BLEEDING STOPPED, PATIENT CLEANED UP AND ASSISTED BACK TO BED WITH A FWW. PATIENT REFUSING TO ALLOW TELE TO BE PLACED BACK. PATIENT REQUESTING FOOD, PATIENT EXPLAINED NPO STATUS AND REASON FOR NPO STATUS. PATIENT YELLING, "I DON'T CARE! I WANT FOOD, I'M HUNGRY!" OVER AND OVER. PATIENT UNRECEPTIVE TO EDUCATION AT THIS TIME. PATIENT IS THREATENING TO PULL OUT REMAINING IV IF FOOD NOT PROVIDED. PATIENT CURRENTLY SITTING IN BED, WATCHING TV. PATIENT CONTINUES TO REFUSE TO ALLOW TELE TO BE PLACED BACK ON. WILL CONTINUE TO MONITOR.
--- NOTE | 2019-10-30 03:35 | NUR ---
PATIENT REFUSAL PT REFUSING CARE. PT REFUSES LAB TO DRAW AM BLOOD AND REFUSES VITAL SIGNS.
--- NOTE | 2019-10-30 06:31 | NUR ---
SHIFT SUMMARY PT ARRIVED TO UNIT LETHARGIC. PT PUT ON CPAP AT 3 L 02. PT'S VS STABLE. PT TURNED Q 2 HRS FOR THE FIRST 4 HRS OF SHIFT. PT BECAME ALERT AND ORIENTED. PT PULLED OUT IV LINE AND MORGAN. PT REFUSING ALL CARE D/T NPO STATUS.
--- NOTE | 2019-10-30 06:50 | NUR ---
UPDATE PT AGREED TO HAVE 3 L OF 02 VIA NC. O2 SATURATION ABOVE 90%. WILL CONTINUE TO MONITOR UNTIL REPORT GIVEN TO JAMES JARAMILLO.
--- NOTE | 2019-10-30 06:57 | NUR ---
PT ALLOWED VITAL SIGNS TO BE TAKEN. PT'S O2 SATURATION 83%. PT REFUSES TO WEAR OXYGEN OR CPAP.
--- NOTE | 2019-10-30 07:30 | NUR ---
ASSUMED CARE PATIENT VERBALLIZED THAT HE WOULD LIKE TO REMAIN FULL CODE WITH CPR. PATIENT ALSO VERBALLIZED THAT THIS RN WOULD NOT BE CARING FOR HIM. PATIENT REFUSED TO ALLOW THIS RN TO ASSESS HIM, REFUSED TO ALLOW THIS RN TO TAKE HIS VITAL SIGNS AND REFUSED OXYGEN NEEDED. PATIENT EXTREMELY LABILE. YELLING OUT AT TIMES. PATIENT STATES HE WISHES TO EAT - PATIENT EDUCATED THAT HE IS NPO DUE TO ASPIRATION PRECAUTIONS PENDING SPEECH EVALUAITON. MD VILLARREAL UPDATED ON ABOVE FINDINGS. WILL CONTINUE TO MONIOR PATIENT HE ALLOWS.
--- NOTE | 2019-10-30 09:30 | NUR ---
PATIENT AGRESSIVE PATIENT FLIPPED BEDSIDE TABLE OVER - THREW ITEMS FROM BEDSIDE TABE AT STAFF, TOSSED BIPAP OVER IN ROOM - YELLING OUT AND SCREAMING FOR FOOD AND AT STAFF. PATIENT EDUCATED - REFUSED EDUCATIONS AND REDIRECTION. SECURITY CALLED. DISCUSSED SITUATION WITH MD ALBARADO. PLAN TO SEDATE PATIENT AND SEND TO ICU FOR TREATMENT - RESTRAINTS ORDERED IF NECESSARY TO PROVIDE CARE. PATIENTS OXYGEN SATURATION NOTED TO BE IN LOW 80'S. PATIENT CONTINUOUS TO REFUSED TO ALLOW VITAL SIGNS TO BE TAKEN AND TO ALLOW THIS RN TO TREAT LOW OXYGEN SATURATION. PER EMAR/MD ALBARADO ORDERS PATIENT MEDICATED FOR AGITATION/AGGRESSION PER EMAR. THIS RN REMAINED AT BEDSIDE UNTIL TRANSFER TO IXU 10. REPORTED TO ENDING MACHINE OPERATORELLA FLETCHER
--- NOTE | 2019-10-30 10:34 | NUR ---
1000... TRANSFER NOTE. PT TRANSFERED TO ICU -10 VIA BED AFTER BEHAVIORAL ISSUES. PT IS CALM, WILL MAEW, HAS L SHOULDER IV NS WITH ABX INFUSING. PT WAS GIVEN ZYPREXA IM PRIOR TO TRANSFER. PUPILS AR 2MM, PT DANIELA RESPOND TO STIMULATION OTHERWISE IS SOMULENT. VS NOTE. O2 AT 2L NC WITH SOME NOTED BRIEF PERIODS OF APNEA AND SATS 99%. LUNGS ARE QUIET DIMINISHED ON R SIDE AND L SIDE NEARLY CLEAR TO ASCULTATION. BT ARE NOTED TIMES 4 QUADS. PT HAS 2 TO 3+ PITTING EDEMA EVEN UP INTO RIB CAGE AREA. DISATAL EXTREMETIES ARE WARM. PT IS NOTED TO HAVE HEMATURIA FROM SELF REMOVAL OF MORGAN. WILL SPEAK TO DR PACKER NEED FOR OTHER IV SITE PT IS RESISTING NEW IV SITE AT THIS TIME WHEN STIMULATED AND QUESTIONS RE IV SITE.
--- NOTE | 2019-10-30 12:01 | NUR ---
Initial Pal Care consult - Referral received this am due to pt declining care and wanting to leave AMA again. Issues listed for referral were Cardiac, Advanced Care planning, EOL/comfort care, end stage disease and psych/social/moral distress. EMR reviewed, spoke with Four Slide Machine Operator and who have met Mr Hoffman. RN notes and Dr notes report increased agitation and dangerous behaviours towards staff this am and transfer to ICU for sedation treatment and monitoring with two MD hold and psych eval requested. See RN and DR notes from this am. Visited pt in ICU#10. He is sedated and does not appear in distress at this time. He is not in respiratory distress with O2 on via nasal canula. He is not responsive to voice. He has one person listed as a contact on his demographics page, Anny Marti [phone]. I called Anny and found out she is his [employer] manager of case. She reported that they can no longer provide housing for him, at any motel, because he was kicked out due to dangerous behavior on a previous discharge. She did give me a number for Anup Whitmore, at the [facility], who works with the homeless and is familiar with our pt. His# is [phone] [id number]. I spoke to Anup and he will research their records for any available family or NOK contacts and provide us with that info if found. I updated and RN. I also contacted our director of mission and ministry to discuss the possible ethical implications and request support for physicians/staff treating Mr Hoffman going forward if he refuses care. If he is deemed unable to make his own medical decisions a decision maker/surrogate may need to be arranged thru guardianship with no viable family or friend contacts. While completing this eval and note I received a call back from Anup at the [place]. He states they have no family/friend contact names or info. He believes the pt may have a wil and two sisters that he has had no contact with for a long time and the [place] does not have any idea how to contact them without names/location. Plan to follow in supportive role. Will fully update Vimal uNno of concerns this afternoon.
--- NOTE | 2019-10-30 12:38 | NUR ---
PT PERSISTS WITH APNEA OCC, BUT SATS STABLE AT 97-8% ON 3LNC.
[2019-10-30 13:22] LABS: BASOPHILS ABSOLUTE AUTO 0.03 K/mm3 (0.00-0.23); BASOPHILS PERCENT AUTO 0 % (0-2); EOSINOPHILS ABSOLUTE AUTO 0.04 K/mm3 (0.00-0.68); EOSINOPHILS PERCENT AUTO 1 % (0-6); Hematocrit 28.8 % (37.0-53.0); Hemoglobin 8.6 g/dL (13.5-17.5); IMMATURE GRAN ABSOLUTE AUTO 0.03 K/mm3 (0.00-0.10); IMMATURE GRAN PERCENT AUTO 0 % (0-1); LYMPHOCYTES ABSOLUTE AUTO 0.71 K/mm3 (0.84-5.20); LYMPHOCYTES PERCENT AUTO 9 % (21-46); MONOCYTES ABSOLUTE AUTO 0.67 K/mm3 (0.16-1.47); MONOCYTES PERCENT AUTO 8 % (4-13); Mean Corpuscular HGB 24.4 pg (26.0-34.0); Mean Corpuscular HGB Conc 29.9 g/dL (31.5-36.5); Mean Corpuscular Volume 82 fL (80-100); Mean Platelet Volume 9.3 fL (9.1-12.4); NEUTROPHILS ABSOLUTE AUTO 6.45 K/mm3 (1.96-9.15); NEUTROPHILS PERCENT AUTO 81 % (41-73); Platelet Count 275 K/mm3 (150-400); RDW Coefficient Variation 17.2 % (11.7-14.2); RDW Standard Deviation 51.4 fL (35.1-46.3); Red Blood Cell Count 3.53 M/mm3 (4.30-5.90); White Blood Cell Count 7.93 K/mm3 (4.00-11.30)
[2019-10-30 13:49] LABS: Alanine Aminotransfer (ALT/SGP 61 U/L (12-78); Albumin, Blood 2.5 g/dL (3.4-5.0); Albumin/Globulin Ratio 0.9 (0.8-1.8); Alk Phos 91 U/L (50-136); Anion Gap 0 mmol/L (6-16); Aspartate Aminotrans (AST/SGOT 48 U/L (12-37); Bilirubin, Total 0.4 mg/dL (0.1-1.0); Blood Urea Nitrogen 39 mg/dL (8-24); Bun/Creatinine Ratio 40.8 (12.0-20.0); CO2, Blood 39 mmol/L (21-32); Chloride, Blood 97 mmol/L (98-108); Creatinine, Blood 0.96 mg/dL (0.60-1.20); Globulin, Blood 2.8 g/dL (2.2-4.0); Glomerular Filtration Rate >60 (60-); Glucose, Blood 89 mg/dL (70-99); Potassium, Blood 4.1 mmol/L (3.5-5.5); Sodium, Blood 136 mmol/L (136-145)
[2019-10-30 13:51] LABS: Total Protein, Blood 5.3 g/dL (6.4-8.2)
--- NOTE | 2019-10-30 16:00 | NUR ---
1500-rachana... 16 FR MORGAN CATH PLACED DUE TO SUSPECTED RETENTION AND NOTED HEMATURIA. INSERTION WAS W.O DIFFICULTY. YELLOW URINE OF 625 FOLLOWED BY 50 ML DARK BLOOD TINGED URINE BUT NO VISIBLE CLOTS. LASIX WAS NOW GIVEN AND WILL FOLLOW AND ASSESS I/O.
--- NOTE | 2019-10-30 16:46 | NUR ---
Pt does NOT have an AD or POA for healthcare on record with the [facility] per return fax from [facility] medical records. They also do not have any record of family/friend contacts for patient. This was verified with medical records and Anup Whitmore, drug abuse social worker at [facility], who works with homeless Veterans and knows Mr Hoffman.
[2019-10-30 16:59] LABS: Source, Urine Clean Catch
[2019-10-30 17:01] LABS: Bilirubin, Urine Neg (Neg); Blood, Urine 2+ (Neg); Glucose Qualitative, Urine Neg (Neg); Ketones, Urine Neg (Neg); Leukocyte Esterase, Urine Neg (Neg); Nitrite, Urine Neg (Neg); Protein, Urine Neg (Neg); Specific Gravity, Urine 1.005 (1.003-1.022); Urobilinogen, Urine NORM (Normal)
[2019-10-30 17:11] LABS: Appearance, Urine Clear (Clear); Color, Urine Pale Yellow (P-Yellow)
[2019-10-30 17:12] LABS: Bacteria Rare /hpf; Squamous Epithelial Cells Not Seen /hpf (Few); White Blood Cells, Urine 0-2 /hpf (0-5)
--- NOTE | 2019-10-30 18:09 | NUR ---
PT AWAKENED AND ASKED FOR PO INTAKE. PULLED OFF O2 AND INSISTED HE DID NOT NEED IT. PT WAS LEFT ALONE AND RETURNED TO LIGHT SEDATION ON INCREASED PRECEDEX GTT OF 0.4 MCG. PT SATS DOWN TO 85-6 ON RA AND WITH PT RELAXED AND SEDATE O2 WAS AGAIN PLACED ON AT 3L AND SATS CAME UP TO 98% JHON. VS NOTED. I/O NOTED. URINE HAS VERY SL SEDIMENT OF BLOOD, IS IMPORVED, OTHERWISE YELLOW. WHEN PT AWAKEN, HE DID FLAIL HIS ARMS WHILE HOLDING HIS PILLOW, BUT NOT IN AN AGGRESSIVE MANNER, AND THE PLACED IT UNDER HIS HEAD W/O THROWING IT AT ANY ONE.
--- NOTE | 2019-10-30 19:35 | NUR ---
ASSUMED PT CARE. REPORT AND BEDSIDE ROUNDING WITH LIS Monzon RN AND GONZALEZ RN AT 1855. ASSUME PT CARE. PT SEDATED ON PRECEDEX INFUSING @ 0.4MCG/KG/HR. PT ROUSABLE TO PAIN. 20G IV TO LEFT SHOULDER WITH NS INFUSING @ 10ML/HR, SITE WNL, DRESSING C/D/I, POWER GIDE TO LEFT AC WITH PRECEDEX, SITE WNL, DRESSING C/D/I. PT HAS PATENT MORGAN DRAINING CLEAR YELLOW URINE. SKIN TO PENIS EXCORIATED. PT ON 2L O2 PER NC, SATS >92%, LUNG SOUNDS CLEAR TO UPPER OQUENDO. PT AFIB ON THE MONITOR. BP WTABLE. EDEMATOUS TO LEGS AND ABD. MULT SMALL ABRASION LIKE WOUNDS TO EXT. CALL LIGHT IN REACH. SEE FULL SHIFT ASSESSMENT.
--- NOTE | 2019-10-30 21:00 | NUR ---
PT BECAME AGITATED AND PULLED OFF ALL MONITORING DEVICES, ATTEMPTING TO PULL MORGAN. EXPLAINED TO PT THAT HE NEEDS TO LEAVE THESE THINGS IN PLACE. PT STATES "FUCK YOU". ASSISTANCE FROM OTHER NURSES CALLED, PT MEDICATED WITH IM ZYPREXA. PT CONTINUES TO PULL AT THINGS, ASKED PT IF HE WANTED TO STAY AND LET STAFF CONTINUE TO CARE FOR HIM, PT REPLIED "I JUST WANT TO EAT YOU CUNT". PT PLACED IN BILATERAL WRIST RESTRAINTS.
[2019-10-30] MEDS ORDERED: GABA300 PO (21:01)
[2019-10-30] MEDS ORDERED: BENADRYL25 MG PO (21:02)
[2019-10-30] MEDS ORDERED: Mupirocin22 GM TOP (21:04)
[2019-10-30] MEDS ORDERED: OMEP20ER PO (21:05)
[2019-10-30] MEDS ORDERED: NAPR220 PO (21:05)
[2019-10-30] MEDS ORDERED: FINA5 PO (21:08)
[2019-10-31 03:48] LABS: BASOPHILS ABSOLUTE AUTO 0.01 K/mm3 (0.00-0.23); BASOPHILS PERCENT AUTO 0 % (0-2); EOSINOPHILS ABSOLUTE AUTO 0.07 K/mm3 (0.00-0.68); EOSINOPHILS PERCENT AUTO 1 % (0-6); Hematocrit 31.5 % (37.0-53.0); Hemoglobin 9.2 g/dL (13.5-17.5); IMMATURE GRAN ABSOLUTE AUTO 0.02 K/mm3 (0.00-0.10); IMMATURE GRAN PERCENT AUTO 0 % (0-1); LYMPHOCYTES PERCENT AUTO 13 % (21-46); MONOCYTES ABSOLUTE AUTO 0.52 K/mm3 (0.16-1.47); MONOCYTES PERCENT AUTO 8 % (4-13); Mean Corpuscular HGB 23.8 pg (26.0-34.0); Mean Corpuscular HGB Conc 29.2 g/dL (31.5-36.5); Mean Corpuscular Volume 82 fL (80-100); Mean Platelet Volume 9.1 fL (9.1-12.4); NEUTROPHILS ABSOLUTE AUTO 4.75 K/mm3 (1.96-9.15); NEUTROPHILS PERCENT AUTO 77 % (41-73); Platelet Count 249 K/mm3 (150-400); RDW Standard Deviation 50.4 fL (35.1-46.3); Red Blood Cell Count 3.86 M/mm3 (4.30-5.90); White Blood Cell Count 6.17 K/mm3 (4.00-11.30)
[2019-10-31 04:05] LABS: Anion Gap 3 mmol/L (6-16); Blood Urea Nitrogen 36 mg/dL (8-24); Bun/Creatinine Ratio 31.3 (12.0-20.0); CO2, Blood 39 mmol/L (21-32); Calcium, Blood 8.1 mg/dL (8.5-10.1); Chloride, Blood 98 mmol/L (98-108); Creatinine, Blood 1.15 mg/dL (0.60-1.20); Glomerular Filtration Rate >60 (60-); Glucose, Blood 74 mg/dL (70-99); Potassium, Blood 3.7 mmol/L (3.5-5.5); Sodium, Blood 140 mmol/L (136-145)
--- NOTE | 2019-10-31 06:15 | NUR ---
SHIFT SUMMARY PT REMAINS SEDATED ON PRECEDEX 0.4MCG/KG/HR, WAKES OFTEN AND BECOMES AGITATED, VIOLENT AND DISRUPTIVE TO CARE. PT IN SOFT WRIST RESTRAINTS BILATERALY TO PROTECT LINES AND TUBES (ON PREVIOUS UNIT PT PULLED OUT MORGAN CATHETER WHILE BALLOON WAS INFLATED). PT ON 3L O2 PER NC, SATS >92%, LUNG SOUNDS CLEAR. BPS STABLE. 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 PATENT MORGAN DRAINING CLEAR YELLOW URINE. PT AFEBRIL, FREE OF SEIZURES, NO BM. ABD SOFT, MILDLY DISTENDED. POWERGLIDE TO LEFT AC, DRESSING C/D/I. 20G TO LEFT SHOULDER, DRESSING C/D/I. PT NPO, NUTRUTION AND CBG MONITORING SHOULD BE ADDRESSED PTS GLUCOSE THIS AM IS 74. WILL REPORT TO ONCOMING SHIFT.
--- NOTE | 2019-10-31 07:17 | NUR ---
Received report from Marcellus JARAMILLO and Ulices JARAMILLO. Patient resting on Precedex. Repositioned at report. Patient on 3L O2 via NC and sats 99%. He arouses minimally with painful stimuli. He has 20ga IV left shoulder dressing intact and site WNL's and is flushed and SL'd. He has PowerGlide in JUANCARLOS dressing intact and wrapped in coban and is infusing Precedex 0.4 mcg/kg/hr and NS TKO. He has 16Fr Temp mckinley draining to gravity anil colored urine and has 95.2 temp. He has 2+ edema throughout distal extremities. He is in A-Fib with rate 50-60's. He jhas bilateral soft wrist restraints for line and tube protection as he has attempted several times to remove lines.
--- NOTE | 2019-10-31 09:26 | NUR ---
Patient received bath and linen change, he awoke and was briefly agressive anfd then very apoligetic and thankful. I tested his swallow with sips of water with am meds and he tolerated well. I called Dr Henry and received diet order . Patient resting off and on and is currently cooperative with care. He remains in A-Fib and rate 50-60's, sats >90% on 3 L O2 via NC. He is able to feed self with pudding. He agreed not to pull on any lines and tubes and restraints briefly off for eating.
--- NOTE | 2019-10-31 11:45 | NUR ---
Patient has been calm and cooperative with his care, Precedex remains on at 0.4 mcg/kg/hr and just reduced to 0.2 mcg/kg/hr. He is currently sitting up eating lunch and tolerating well. VSS, See EMR. He remains in A-Fib in the 70-80's.
--- NOTE | 2019-10-31 13:34 | NUR ---
Patient frequently regional guide light for food or some mikayla of drink or hits button by mistake. He has been pleasant and cooperitive with all his care. He has had no outburst since this am. He states he would like to go to [facility] for Psych treatment. VSS. See EMR
--- NOTE | 2019-10-31 15:37 | NUR ---
Patient has been doing well with reduction of Pecedex upto the last hour where he has been a little depressed and irritable with aide, and pulling bp cuff and Sao2 leads off. Went in and talked with him and he allowed equipment back on and was cooperative. Dr Jordan was in and saw him and patient stated he really wants to go home and smoke but will be cooperative and stay. He continues to snack all day . VSS, See EMR. Positions self for comfort.
--- NOTE | 2019-10-31 17:14 | NUR ---
Initial spiritual care note: Mr. Hoffman appears confused. He denied needs, says he has no family/friends, and "All I need is Davin." Provided prayer and encouragement. Meaningful conversation seemed unlikely today. I will remain available.
--- NOTE | 2019-10-31 17:45 | NUR ---
Patient has increased agitation back and forth and when awakens is angry that he has to stay and then states he understand. VSS, See EMR. May remains and has light anil colored urine. He remains out of restraionts but if increase of pulling lines off will replace restraints to bilateral UE's.
[2019-11-01 04:08] LABS: BASOPHILS ABSOLUTE AUTO 0.03 K/mm3 (0.00-0.23); BASOPHILS PERCENT AUTO 1 % (0-2); EOSINOPHILS ABSOLUTE AUTO 0.07 K/mm3 (0.00-0.68); EOSINOPHILS PERCENT AUTO 1 % (0-6); Hematocrit 32.4 % (37.0-53.0); Hemoglobin 9.2 g/dL (13.5-17.5); IMMATURE GRAN ABSOLUTE AUTO 0.03 K/mm3 (0.00-0.10); IMMATURE GRAN PERCENT AUTO 1 % (0-1); LYMPHOCYTES ABSOLUTE AUTO 0.65 K/mm3 (0.84-5.20); LYMPHOCYTES PERCENT AUTO 11 % (21-46); MONOCYTES PERCENT AUTO 10 % (4-13); Mean Corpuscular HGB 23.7 pg (26.0-34.0); Mean Corpuscular HGB Conc 28.4 g/dL (31.5-36.5); Mean Corpuscular Volume 83 fL (80-100); Mean Platelet Volume 9.4 fL (9.1-12.4); NEUTROPHILS ABSOLUTE AUTO 4.72 K/mm3 (1.96-9.15); NEUTROPHILS PERCENT AUTO 77 % (41-73); Platelet Count 307 K/mm3 (150-400); RDW Coefficient Variation 17.2 % (11.7-14.2); RDW Standard Deviation 52.5 fL (35.1-46.3); Red Blood Cell Count 3.89 M/mm3 (4.30-5.90)
[2019-11-01 04:25] LABS: Alanine Aminotransfer (ALT/SGP 51 U/L (12-78); Albumin, Blood 2.3 g/dL (3.4-5.0); Albumin/Globulin Ratio 0.8 (0.8-1.8); Alk Phos 83 U/L (50-136); Anion Gap 2 mmol/L (6-16); Aspartate Aminotrans (AST/SGOT 25 U/L (12-37); Bilirubin, Total 0.3 mg/dL (0.1-1.0); Blood Urea Nitrogen 31 mg/dL (8-24); Bun/Creatinine Ratio 25.4 (12.0-20.0); CO2, Blood 39 mmol/L (21-32); Calcium, Blood 7.8 mg/dL (8.5-10.1); Chloride, Blood 99 mmol/L (98-108); Creatinine, Blood 1.22 mg/dL (0.60-1.20); Globulin, Blood 2.8 g/dL (2.2-4.0); Glomerular Filtration Rate >60 (60-); Glucose, Blood 107 mg/dL (70-99); Potassium, Blood 3.7 mmol/L (3.5-5.5); Sodium, Blood 140 mmol/L (136-145); Total Protein, Blood 5.1 g/dL (6.4-8.2)
--- NOTE | 2019-11-01 04:28 | NUR ---
SHIFT SUMMARY PATIENT SLEPT OFF AND ON THROUGH NIGHT. HAS NOT BEEN VERY COOPERATIVE WITH CARE. SHIFTS SELF OCASSIONALLY, NOT REALLY A FULL TURN, OFFER TO HELP, PT. RESPONDS "F OFF, WHO THE F CARES?" AFTER ATTEMPTING TO EDUCATE PATIENT ON NEED FOR REPOSITIONING, PT. TELLS ME "GO THE F AWAY, NOBODY ASKED YOU." MUCH OF THE REST OF THE NIGHT HAS GONE ON IN THIS MANNER. PT. FREQUENTLY REQUESTS DRINKS OR WALESKA CRACKERS. NO C/O PAIN. VSS. WILL CONTINUE TO MONITOR.
--- NOTE | 2019-11-01 05:14 | NUR ---
10/31 @ 0500 PT. BECAME AGITATED, THREW HOT COFFEE AT STAFF, PLACED PT. BACK IN SOFT WRIST RESTRAINTS. WILL CONTINUE TO MONITOR.
--- NOTE | 2019-11-01 11:10 | NUR ---
ASSUMED CARE OF PT AT 0700. REPORT FROM ARIEL JARAMILLO. AT START OF SHIFT, PRECEDEX INFUSING AT 0.2 MCG/KG/HR AND SOFT WRIST RESTRAINTS IN PLACE. PRECEDEX PLACED ON STANDBY. UPON AWAKENING, PT PLEASANT, CALM AND COOPERATIVE. STATES PLEASE AND THANK YOU c CARE. RESTRAINTS REMOVED. PT UP TO CHAIR. USING CALL LIGHT APPROPRIATELY. COMPLIANT c MEDS. DENIES COMPLAINTS. LUNGS DIMINISHED IN BASES, SHALLOW RESP. PT P/W/D. 2+ EDEMA TO LOWER EXTREMITIES. MORGAN IN PLACED, DRAINING CLEAR YELLOW URINE TO GRAVITY. SCANT BLOODY DISCHARGE TO URETHRA. VSS. STATUS CHANGED TO MEDICAL FLOOR. WILL CONTINUE TO MONITOR.
--- NOTE | 2019-11-01 12:49 | NUR ---
PT TRANSFERRED TO MEDICAL FLOOR IN RECLINER. ALL BELONGINGS c PT. REPORT TO NICOLETTE JARAMILLO.
--- NOTE | 2019-11-01 17:16 | NUR ---
SHIFT SUMMARY PT A/O X3. ICU TRANSFER THIS AM. PT BROUGHT UP IN A RECLINER BUT HAS BEEN RESTING IN BED COMFORTABLY FOR MOST OF THE SHIFT. PT IS A 1 ASSIST. MORGAN CATHETER PATENT AND DRAINING. ASKS FOR SNACKS AND COFFEE OFTEN. PT HAS BEEN COOPERATIVE AND HIS MOOD HAS BEEN PLEASANT THIS SHIFT. VSS; WILL CONTINUE TO MONITOR.
--- NOTE | 2019-11-01 22:02 | NUR ---
AWAKE FOR ASSESSMENT. QUIET UNLESS SPOKEN TO. ORIENTED TO QUESTIONS ASKED. CALL LIGHT IN REACH.
--- NOTE | 2019-11-02 03:07 | NUR ---
VITAL SIGNS TAKEN, BP ELEVATED, RESPS 36 AND SHALLOW. ALTITUDE CHAMBER TECHNICIAN MD NOTIFIED AND ORDERS RECEIVED. MD TO DO BEDSIDE ASSESSMENT. CALL LIGHT IN REACH
--- NOTE | 2019-11-02 03:35 | NUR ---
O2 PER NC FOR RESPS OF 36 AND SHALLOW. DIMINISHED IN THE BASES. ALERT AND ORIENTED, O2 SATS UP IN THE 90'S NOW. INSTRUCTED TO KEEP O2 NC IN NOSE. HOB ELEVATED FOR RESP COMFORT. CALL LIGHT IN REACH
[2019-11-02 08:47] LABS: BASOPHILS ABSOLUTE AUTO 0.04 K/mm3 (0.00-0.23); BASOPHILS PERCENT AUTO 0 % (0-2); EOSINOPHILS ABSOLUTE AUTO 0.04 K/mm3 (0.00-0.68); EOSINOPHILS PERCENT AUTO 0 % (0-6); Hematocrit 35.2 % (37.0-53.0); Hemoglobin 10.2 g/dL (13.5-17.5); IMMATURE GRAN ABSOLUTE AUTO 0.05 K/mm3 (0.00-0.10); IMMATURE GRAN PERCENT AUTO 1 % (0-1); LYMPHOCYTES ABSOLUTE AUTO 0.59 K/mm3 (0.84-5.20); LYMPHOCYTES PERCENT AUTO 6 % (21-46); MONOCYTES ABSOLUTE AUTO 1.04 K/mm3 (0.16-1.47); MONOCYTES PERCENT AUTO 10 % (4-13); Mean Corpuscular HGB 23.7 pg (26.0-34.0); Mean Corpuscular Volume 82 fL (80-100); Mean Platelet Volume 9.1 fL (9.1-12.4); NEUTROPHILS ABSOLUTE AUTO 8.62 K/mm3 (1.96-9.15); NEUTROPHILS PERCENT AUTO 83 % (41-73); Platelet Count 300 K/mm3 (150-400); RDW Coefficient Variation 17.2 % (11.7-14.2); RDW Standard Deviation 51.5 fL (35.1-46.3); White Blood Cell Count 10.38 K/mm3 (4.00-11.30)
[2019-11-02 09:34] LABS: Alanine Aminotransfer (ALT/SGP 48 U/L (12-78); Albumin, Blood 2.7 g/dL (3.4-5.0); Albumin/Globulin Ratio 0.8 (0.8-1.8); Alk Phos 97 U/L (50-136); Anion Gap 1 mmol/L (6-16); Aspartate Aminotrans (AST/SGOT 26 U/L (12-37); Bilirubin, Total 0.4 mg/dL (0.1-1.0); Blood Urea Nitrogen 19 mg/dL (8-24); Bun/Creatinine Ratio 21.3 (12.0-20.0); CO2, Blood 39 mmol/L (21-32); Calcium, Blood 8.3 mg/dL (8.5-10.1); Chloride, Blood 100 mmol/L (98-108); Creatinine, Blood 0.89 mg/dL (0.60-1.20); Globulin, Blood 3.4 g/dL (2.2-4.0); Glomerular Filtration Rate >60 (60-); Glucose, Blood 167 mg/dL (70-99); Magnesium, Blood 2.1 mg/dL (1.6-2.4); Potassium, Blood 3.3 mmol/L (3.5-5.5); Sodium, Blood 140 mmol/L (136-145); Total Protein, Blood 6.1 g/dL (6.4-8.2)
[2019-11-02] MEDS ORDERED: ALBU3IS INH (10:06)
[2019-11-02] MEDS ORDERED: POTA10T PO (10:08)
[2019-11-02] MEDS ORDERED: Prednisone10 MG PO (10:09)
--- NOTE | 2019-11-02 11:28 | NUR ---
PT REFUSES TO KEEP OXYGEN ON. RN AND PROFESSOR CRIMINAL JUSTICE RE-EDUCATED PT. PT SATING IN THE 80'S WITH O2 OFF AND IN THE LOW 90'S ON 3 LITERS O2. WILL CONTINUE TO MONITOR.
--- NOTE | 2019-11-02 16:23 | NUR ---
PATIENT REFUSED TO PUT ON HIS NASAL CANNULA FOR ME,EVEN THOUGH HIS SATS WERE BETWEEN 85-90.
--- NOTE | 2019-11-02 17:21 | NUR ---
SHIFT SUMMARY PT A/O X2/3. PATIENT HAS BEEN RESTING IN BED FOR MOST OF THE SHIFT. THE PT'S BREATHING HAS BEEN SHALLOW WITH WHEEZING AND HE HAS BEEN SATTING IN THE 80'S. PT'S 02 SATURATION IS IN THE 90'S ON 3 LITERS O2 VIA NC. THE PATIENT REFUSES TO WEAR HIS OXYGEN; PHYSICIAN NOTIFIED. THE PATIENT HAS BEEN EDUCATED ON THE MANNER. HOWEVER, HE RESPONDS WELL TO BREATHING TREATMENTS. MORGAN IS PATENT AND DRAINING. PATIENT OVERALL HAS BEEN PLEASANT TODAY; WILL CONTINUE TO MONITOR.
--- NOTE | 2019-11-02 19:00 | NUR ---
VERIFIED PATIENT MONITIORING WITH REMOTE MONITOR STAFF
--- NOTE | 2019-11-02 22:59 | NUR ---
VEWS SCORE PT HAD VEW SCORE OF 5 AT 1930. VS HAVE BEEN TRENDING FOR SEVERAL DAYS. NOTIFIED HOSPITALIST AT 1999. NO NEW ORDERS AT THIS TIME.
--- NOTE | 2019-11-03 04:28 | NUR ---
SEMICONDUCTOR PROCESSOR SUMMARY PATIENT REFUSED MOST CARE THIS SHIFT. RECENT VEW SCORES OF 5 WHICH HAS BEEN UNCHANGED DURING STAY. NO ACUTE DISTRESS. LABORED BREATHING AND SOB AT TIMES BUT REFUSES OXYGEN AND BREATHING TREATMENT. HOSPITALIST HAS BEEN NOTIFIED OF VS. HE APPEARED TO SLEEP MOST OF THE NIGHT. BED IN LOWEST POSITION WITH CALL LIGHT IN REACH. WILL CONTINUE TO MONITOR AND REPORT TO ONCOMING RN.
[2019-11-03 05:34] LABS: BASOPHILS ABSOLUTE AUTO 0.04 K/mm3 (0.00-0.23); BASOPHILS PERCENT AUTO 1 % (0-2); EOSINOPHILS ABSOLUTE AUTO 0.16 K/mm3 (0.00-0.68); EOSINOPHILS PERCENT AUTO 2 % (0-6); Hematocrit 32.8 % (37.0-53.0); Hemoglobin 9.6 g/dL (13.5-17.5); IMMATURE GRAN ABSOLUTE AUTO 0.03 K/mm3 (0.00-0.10); IMMATURE GRAN PERCENT AUTO 0 % (0-1); LYMPHOCYTES ABSOLUTE AUTO 0.61 K/mm3 (0.84-5.20); LYMPHOCYTES PERCENT AUTO 7 % (21-46); MONOCYTES ABSOLUTE AUTO 0.87 K/mm3 (0.16-1.47); MONOCYTES PERCENT AUTO 10 % (4-13); Mean Corpuscular HGB 23.9 pg (26.0-34.0); Mean Corpuscular HGB Conc 29.3 g/dL (31.5-36.5); Mean Corpuscular Volume 82 fL (80-100); Mean Platelet Volume 9.2 fL (9.1-12.4); NEUTROPHILS ABSOLUTE AUTO 7.07 K/mm3 (1.96-9.15); NEUTROPHILS PERCENT AUTO 81 % (41-73); Platelet Count 289 K/mm3 (150-400); RDW Coefficient Variation 17.2 % (11.7-14.2); RDW Standard Deviation 51.4 fL (35.1-46.3); Red Blood Cell Count 4.01 M/mm3 (4.30-5.90); White Blood Cell Count 8.78 K/mm3 (4.00-11.30)
[2019-11-03 06:01] LABS: Alanine Aminotransfer (ALT/SGP 41 U/L (12-78); Albumin, Blood 2.7 g/dL (3.4-5.0); Albumin/Globulin Ratio 0.8 (0.8-1.8); Alk Phos 95 U/L (50-136); Anion Gap 2 mmol/L (6-16); Aspartate Aminotrans (AST/SGOT 28 U/L (12-37); Bilirubin, Total 0.3 mg/dL (0.1-1.0); Blood Urea Nitrogen 19 mg/dL (8-24); Bun/Creatinine Ratio 24.3 (12.0-20.0); CO2, Blood 37 mmol/L (21-32); Calcium, Blood 8.5 mg/dL (8.5-10.1); Chloride, Blood 101 mmol/L (98-108); Creatinine, Blood 0.78 mg/dL (0.60-1.20); Globulin, Blood 3.5 g/dL (2.2-4.0); Glomerular Filtration Rate >60 (60-); Glucose, Blood 110 mg/dL (70-99); Potassium, Blood 3.9 mmol/L (3.5-5.5); Sodium, Blood 140 mmol/L (136-145); Total Protein, Blood 6.2 g/dL (6.4-8.2)
--- NOTE | 2019-11-03 19:12 | NUR ---
SHIFT SUMAMRY: NO ACUTE CHANGES TO REPORT THIS SHIFT. PT A&O; IRRITABLE; COOPERATIVE WITH MEDS; REFUSING ASSESSMENT. NO C/O PAIN. MORGAN IN PLACE; PATENT AND DRAINING. AWAITING INPATIENT PSYCH FACILITY PLACEMENT. REPORT GIVEN TO ONCOMING RN.
--- NOTE | 2019-11-04 04:04 | NUR ---
MDS COORDINATOR SUMMARY PT HAS BEEN TAKING MEDICATIONS BUT STILL REFUSES ASSESSMENTS WELL VS AT TIMES. MOSTLY COMPLIANT WITH BREATHING TREATMENTS WELL OXYGEN. APPEARED TO SLEEP T/O SHIFT. NO ACUTE DISTRESS NOTED. BED IN LOWEST POSITION WITH CALL LIGHT IN REACH. WILL CONTINUE TO MONITOR AND REPORT TO ONCOMING RN.
[2019-11-04 05:39] LABS: BASOPHILS ABSOLUTE AUTO 0.03 K/mm3 (0.00-0.23); BASOPHILS PERCENT AUTO 0 % (0-2); EOSINOPHILS ABSOLUTE AUTO 0.11 K/mm3 (0.00-0.68); EOSINOPHILS PERCENT AUTO 1 % (0-6); Hematocrit 32.7 % (37.0-53.0); Hemoglobin 9.3 g/dL (13.5-17.5); IMMATURE GRAN ABSOLUTE AUTO 0.02 K/mm3 (0.00-0.10); IMMATURE GRAN PERCENT AUTO 0 % (0-1); LYMPHOCYTES ABSOLUTE AUTO 0.52 K/mm3 (0.84-5.20); LYMPHOCYTES PERCENT AUTO 6 % (21-46); MONOCYTES ABSOLUTE AUTO 0.62 K/mm3 (0.16-1.47); MONOCYTES PERCENT AUTO 8 % (4-13); Mean Corpuscular HGB 23.5 pg (26.0-34.0); Mean Corpuscular HGB Conc 28.4 g/dL (31.5-36.5); Mean Corpuscular Volume 83 fL (80-100); Mean Platelet Volume 9.1 fL (9.1-12.4); NEUTROPHILS PERCENT AUTO 84 % (41-73); Platelet Count 267 K/mm3 (150-400); RDW Coefficient Variation 17.2 % (11.7-14.2); RDW Standard Deviation 52.2 fL (35.1-46.3); Red Blood Cell Count 3.95 M/mm3 (4.30-5.90)
[2019-11-04 05:58] LABS: Alanine Aminotransfer (ALT/SGP 39 U/L (12-78); Albumin, Blood 2.8 g/dL (3.4-5.0); Albumin/Globulin Ratio 0.8 (0.8-1.8); Alk Phos 97 U/L (50-136); Anion Gap 2 mmol/L (6-16); Aspartate Aminotrans (AST/SGOT 24 U/L (12-37); Bilirubin, Total 0.3 mg/dL (0.1-1.0); Blood Urea Nitrogen 24 mg/dL (8-24); CO2, Blood 38 mmol/L (21-32); Calcium, Blood 8.6 mg/dL (8.5-10.1); Chloride, Blood 100 mmol/L (98-108); Globulin, Blood 3.5 g/dL (2.2-4.0); Glomerular Filtration Rate >60 (60-); Glucose, Blood 96 mg/dL (70-99); Potassium, Blood 4.4 mmol/L (3.5-5.5); Sodium, Blood 140 mmol/L (136-145); Total Protein, Blood 6.3 g/dL (6.4-8.2)
--- NOTE | 2019-11-04 19:21 | NUR ---
SHIFT SUMMARY: NO ACUTE CHANGES TO REPORT THIS SHIFT. PT A&O; LABILE; COOPERATIVE WITH MEDS & O2 CANNULA THIS SHIFT. MORGAN IN PLACE; PATENT & DRAINING; PO DIURETIC FOR EDEMA. AWAITING [facility]PATIENT [facility]AC[facility]. REPORT GIVEN TO ONCOMING RN.
--- NOTE | 2019-11-05 05:55 | NUR ---
SHIFT SUMMARY A/O, ABLE TO MAKE NEEDS KNOWN. COOPERATIVE WITH CARE. CALLS AND ANSWERS QUESTIONS APPROPRIATELY. NO C/O PAIN/DISCOMFORT. HAS FOLLOWED ALL DIRECTIONS OVERNIGHT. NO ACUTE CHANGES NOTED. VSS/AFEBRILE. MORGAN SECURED AND DRAINING TO GRAVITY. BED REMAINS IN LOWEST POSITION. CALL LIGHT AND BELONGINGS WITHIN REACH. WCTM. REPORT TO ONCOMING RN.
--- NOTE | 2019-11-05 09:56 | NUR ---
AM SHIFT ASSESSMENT PT REFUSING TO ALLOW THIS RN DO PT'S SHIFT ASSESSMENT. PT ALSO IS REFUSING TO ALLOW THIS RN TO FLUSH HIS POWERGLIDE. PT DID PULL THE LINE OFF THE POWERGLIDE THIS AM AND MOLECULAR BIOLOGY PROFESSOR REPLACED IT. PT DID TAKE HIS AM MEDICATIONS. NO SIGNS OF DISTRESS AT THIS TIME. CALL LIGHT IN REACH. WILL CONTINUE TO MONITOR PT.
--- NOTE | 2019-11-05 11:29 | NUR ---
PT UP ON WALKER SEAT IN HALLWAY, DOESNT WANT TO BE IN ROOM, NOTHING NEEDED.
--- NOTE | 2019-11-05 13:10 | NUR ---
VITALS/OXYGEN PT HAD REFUSED FOR STAFF TO DO HIS VITALS THIS SHIFT AND WILL NOT PLACE NASAL CANNULA IN HIS NOSE. THIS RN AND CLAIMS CORRESPONDENCE CLERK HAS ASKED MULTIPLE TIMES TO GET HIS VITALS/CHECK HIS O2 OXIMETRY. NO SIGNS OF DISTRESS AT THIS TIME. WILL CONTINUE TO MONITOR. CALL LIGHT IN REACH.
--- NOTE | 2019-11-05 17:48 | NUR ---
OXYGEN PT WAS SLEEPING WHEN THIS RN CAME IN TO GIVE PT SCHEDULED MEDICATION. PT'S SKIN COLOR PURPLE/RED AND PT VERY SHORT OF BREATH. PT REFUSED TO ALLOW THIS RN TO CHECK HIS OXYGEN SATURATION BUT DID AGREE TO PLACE NASAL CANNULA IN NOSE AFTER THIS RN EXPLAINED TO PT HIS SYMPTOMS COULD BE FROM NOT HAVING HIS OXYGEN ON. PT ALSO AGREED TO A BREATHING TREATMENT. RESPIRATORY THERAPY GAVE PT A BREATHING TREATMENT AND PT TOOK OXYGEN OFF AFTER. THIS RN TRIED TO EXPLAIN TO PT IMPORTANCE OF WEARING OXYGEN BUT PT BECAME VERY ANGRY AND TOLD THIS RN HE IS FINE. WILL CONTINUE TO MONITOR FOR DISTRESS. CALL LIGHT IN REACH.
--- NOTE | 2019-11-05 18:28 | NUR ---
SHIFT SUMMARY PT HAS BEEN SLEEPING A LOT OF THE SHIFT. PT HAS REFUSED TO LET STAFF DO VITALS OR ASSESSMENTS ALL SHIFT. PT HAS REFUSED WEAR HIS OXYGEN MOST OF THE SHIFT UNTIL THIS EVENING WHEN THIS RN VOICED HER CONCERNS OF HIS SHORTNESS OF BREATH AND SKIN COLOR. PT DID AGREE TO PLACE OXYGEN BUT REFUSED TO LET RN CHECK HIS OXYGEN SATURATION. PT HAD BREATHING TREATMENT AND HAS BEEN ENCOURAGED TO PUT HIS OXYGEN MULTIPLE TIMES THIS EVENING. PT HAS PUT OXYGEN ON OFF AND ON SINCE BREATHING TREATMENT. TALKED WITH RUNNER WORKER ABOUT PT. WILL CONTINUE TO MONITOR. CALL LIGHT IN REACH.
--- NOTE | 2019-11-05 19:54 | NUR ---
11/05/191934 O2 SATS ONLY 59% ON ROOM AIR. PT ABSOLUTELY REFUSED O2 APPLIED. WHEN RN INSISTED, HE STARTED YELLING "GET OUT!!" RN INFORMED CHICKEN CLEANERDAREN. DANIEL DE JESUS PAGED AND INFORMED OF EVENTS. CHICKEN CLEANERMORGAN WENT AND SPOKE WITH PT AND HE AGAIN REFUSED AND YELLING "NO!' WHEN CHICKEN CLEANER TOLD HIM THAT WE WILL THEN HAVE TO CALL SECURITY, HE ALLOWED O2 AT 4LPM TO BE APPLIED. RESP. CARE CALLED AND UPDATED. RT WILL SPOT CHECK HIS O2 SATS ON 4LPM.
--- NOTE | 2019-11-06 05:30 | NUR ---
11/05/19 2300 RN ROUNDING OF PT AND HE IS SLEEPING IN BED WITH O2 ON. NO DISTRESS NOTED. CONTINUOUS VIDEO MONITORING IN EFFECT.
--- NOTE | 2019-11-06 05:37 | NUR ---
11/06/19 0351 SHELL TRIM OPERATOR CAME INTO ROOM TO DO VITALS/EMPTY MORGAN. SHELL TRIM OPERATOR FOUND PT NOT BREATHING WITHOUT O2 TUBING IN NOSE. MOUTH WITH FROTHY SECRETIONS. SHELL TRIM OPERATOR IMMEDIATELY GOT AN RN. RN FOUND PT UNRESPONSIVE, WITHOUT BREATHING OR PULSE. SELINA HAYWOOD CALLED AT 0353. REFER TO SELINA HAYWOOD FORM. DR REYES PRESENT. AFTER 15 MINUTES OF NO RESPONSE, PT WAS PRONOUNCED AT [address] REYES. MORGAN AND POWER GLIDE REMOVED. BODY PREPARED FOR MORTUARY. ALL BELONGINGS BAGGED.
--- NOTE | 2019-11-06 07:24 | NUR ---
11/06/19 185 MARIA TERESA ALBERTO FROM "[facility]" HERE FOR THE BODY. BELONGINGS SENT WITH BODY.
== END 2019-11-06 04:10 | DRG 177 ==
LOC: ER 14:09 → PCU 17:53 → ICUW 17:53 → PCU 18:50 → ICUW 10-30 10:01 → MEDS 11-01 12:45
PROVIDERS: Internal Medicine; Internal Medicine Critical Care Medicine; Physician Assistant; ADMIT Internal Medicine
PROC: 3E053XZ Introduction of Vasopressor into Peripheral Artery, Percutaneous Approach (ICD-10-PCS; principal; 2019-11-06)
PROC: 02HV33Z Insertion of Infusion Device into Superior Vena Cava, Percutaneous Approach (ICD-10-PCS; 2019-11-06)
PROC: 5A12012 Performance of Cardiac Output, Single, Manual (ICD-10-PCS; 2019-11-06)
DX: J69.0 Pneumonitis due to inhalation of food and vomit (principal); G92 Toxic encephalopathy; I50.33 Acute on chronic diastolic (congestive) heart failure; J96.21 Acute and chronic respiratory failure with hypoxia; E87.1 Hypo-osmolality and hyponatremia; F31.64 Bipolar disorder, current episode mixed, severe, with psychotic features; J44.1 Chronic obstructive pulmonary disease with (acute) exacerbation; Z20.828 Contact with and (suspected) exposure to other viral communicable diseases; F17.210 Nicotine dependence, cigarettes, uncomplicated; F19.10 Other psychoactive substance abuse, uncomplicated; I48.91 Unspecified atrial fibrillation; K21.9 Gastro-esophageal reflux disease without esophagitis; W18.30XA Fall on same level, unspecified, initial encounter; Z59.0 Homelessness; Z91.19 Patient's noncompliance with other medical treatment and regimen; I46.9 Cardiac arrest, cause unspecified; R56.9 Unspecified convulsions; F43.10 Post-traumatic stress disorder, unspecified; I34.0 Nonrheumatic mitral (valve) insufficiency; Z86.14 Personal history of Methicillin resistant Staphylococcus aureus infection; Z79.01 Long term (current) use of anticoagulants
CPT/HCPCS: 31500; 31720; 36415; 51702; 70450; 71045; 80048; 80053; 81001; 83605; 83735; 83880; 84132; 85025; 87040; 87070; 87205; 92526; 92610; 93005; 93010; 94640; 94660; 94760; 94762; 96374; 96375; 99285-25; A9270-GY; C1751; G0480; J0360; J0456; J0461; J0696; J1265; J1940; J1953; J2543; J3370; J7050